=== PATIENT | female | born 1940 | race African-American/Black ===

== ENCOUNTER → 2016-11-16 | Outpatient (CLI) | payer MEDICARE, MEDICAID ==
[~2016-11-16] VITALS: Ht 170.2 cm; Wt 77.6 kg
[~2016-11-16] MED LIST: ALLO300 PO; ASPI-556 PO; BACL10TA PO; CEFX1I IV; CHOL200016 PO; CLON.1 PO; COLC0.6T69 PO; DOCU250C91 PO; FLUT1DIS5 IH; FURO40 PO; GABA-531 PO; HYDR-305 PO; HYDR50 PO; INSLAN SQ; IPRA4AER IH; ISOS1TAB2 PO; LEVO50TA4 PO; LORA10TA7 PO; LOSA50TA37 PO; NIFE10 PO; NITR.4 SL; PHEN-857 PO; POTA10CA44 PO; PRAS10TA6 PO; PRAV40 PO; PREG75 PO; PREMC VG; PROP40TA7 PO; RANO500T3 PO; SENN-161 PO; TRAZ-147 PO; VITAD5000 PO; ZOLP5 PO
[2016-11-16 11:30] VITALS: BP 142/58
== END | disposition home or self-care (01) ==
LOC: SRCNTR 09:27
PROVIDERS: ATTEND Internal Medicine Critical Care Medicine
DX: I10 Essential (primary) hypertension (principal); I25.10 Atherosclerotic heart disease of native coronary artery without angina pectoris; J42 Unspecified chronic bronchitis; I35.0 Nonrheumatic aortic (valve) stenosis; E11.9 Type 2 diabetes mellitus without complications; E66.9 Obesity, unspecified; E03.9 Hypothyroidism, unspecified; K21.9 Gastro-esophageal reflux disease without esophagitis; Z95.5 Presence of coronary angioplasty implant and graft; Z95.2 Presence of prosthetic heart valve
CPT/HCPCS: G0463

== ENCOUNTER → 2017-01-10 | Outpatient (CLI) | payer MEDICARE, MEDICAID ==
[~2017-01-10] MED LIST changes: -BACL10TA PO; -CEFX1I IV; -DOCU250C91 PO; -GABA-531 PO; -NIFE10 PO; -PREMC VG; -PROP40TA7 PO; -RANO500T3 PO; +REGADENOSON 0.4 MG/5 ML PF SYRINGE IVP ONE; +SESTAMIBI TC99M/UD ISOTOPE 1 EA INJ INJ ONE; -VITAD5000 PO
[2017-01-10 08:30] VITALS: BP 152/64
[2017-01-10 11:14] VITALS: BP 169/66
== END | disposition home or self-care (01) ==
LOC: CARDMN 07:50
PROVIDERS: ATTEND Internal Medicine Cardiovascular Disease
DX: I25.9 Chronic ischemic heart disease, unspecified (principal); R07.89 Other chest pain; R55 Syncope and collapse
CPT/HCPCS: 78452; 93017; A9500; J2785

== ENCOUNTER 2017-02-05 14:04 | Inpatient (IN) | payer MEDICARE, MEDICAID ==
[~2017-02-05] VITALS: Ht 170.2 cm; Wt 75.9 kg
[~2017-02-05 14:04] MED LIST changes: +HYDR-2924 PO; -HYDR50 PO; -REGADENOSON 0.4 MG/5 ML PF SYRINGE IVP ONE; -SESTAMIBI TC99M/UD ISOTOPE 1 EA INJ INJ ONE
[2017-02-05 14:32] LABS: GLUCOSE,POINT OF CARE 110 MG/DL (70-110)
[2017-02-05 14:37] LABS: BASOPHILS % (AUTO) 0.3 % (0.0-2.0); EOSINOPHILS % (AUTO) 3.8 % (1.0-6.0); HEMATOCRIT 32.3 % (36-46); HEMOGLOBIN 10.3 g/dL (12.0-16.0); LYMPHOCYTES # (AUTO) 1.7 K/uL (1.0-4.8); MEAN CORPUSCULAR HEMOGLOBIN 30.9 pg (26.0-34.0); MEAN CORPUSCULAR HGB CONC 31.8 G/dL (31.0-37.0); MEAN CORPUSCULAR VOLUME 97 fL (80-100); MONOCYTES # (AUTO) 0.6 K/uL (0.1-1.0); MONOCYTES % (AUTO) 9.9 % (2.0-9.0); NEUTROPHILS # (AUTO) 3.9 K/uL (1.8-7.7); PLATELET COUNT (AUTO) 170 K/uL (150-450); RED BLOOD CELL COUNT(AUTO) 3.32 MIL/uL (4.00-5.20); RED CELL DISTRIBUTION WIDTH 15.4 % (11.5-14.5); WHITE BLOOD COUNT (AUTO) 6.6 K/uL (4.5-11.0)
[2017-02-05 14:44] LABS: ANION GAP 9 mmol/L (8-16); CALCIUM, TOTAL 9.2 mg/dL (8.8-10.5); CARBON DIOXIDE 27 mmol/L (22-29); CHLORIDE 107 mmol/L (98-107); CREATININE 1.55 mg/dL (0.60-1.30); GLOMERULAR FILTR. RATE CALC 40 mL/min (>60); POTASSIUM 3.7 mmol/L (3.5-5.1); SODIUM SERUM 143 mmol/L (136-145); UREA NITROGEN, BLOOD 25 mg/dL (7-18)
[2017-02-05 14:45] LABS: PROTHROMBIN TIME 10.7 SEC (9.4-11.6)
[2017-02-05 15:09] LABS: ALANINE AMINOTRANSFERASE 18 U/L (12-78); ALBUMIN 3.7 g/dL (3.4-5.0); ASPARTATE AMINOTRANSFERASE 17 U/L (15-37); BILIRUBIN,TOTAL 0.4 mg/dL (0.1-1.0); CREATINE KINASE, TOTAL 115 U/L (26-192); TOTAL PROTEIN, SERUM 6.6 g/dL (6.4-8.2)
[2017-02-05 15:14] LABS: CREATINE KINASE MB < 0.5 ng/mL (0-5)
[2017-02-05] MEDS ORDERED: ASPIRIN 81 MG CHEWABLE TABLET PO ONE (15:15)
[2017-02-05 15:23] LABS: ADD UA MICROSCOPIC NO; APPEARANCE,URINE CLEAR (CLEAR); GLUCOSE, URINE (UA) NEGATIVE (NEGATIVE); KETONES,URINE NEGATIVE (NEGATIVE); LEUKOCYTE ESTERASE ,URINE NEGATIVE (NEGATIVE); OCCULT BLOOD,URINE NEGATIVE (NEGATIVE); PH,URINE 7.5 (5.0-8.0); PROTEIN,URINE NEGATIVE (NEGATIVE)
[2017-02-05 15:53] LABS: B-TYPE NATRIURETIC PEPTIDE 434 pg/mL (0-100)
[2017-02-05] MEDS ORDERED: MAGNESIUM HYDROXIDE SUSPENSION 30 ML UDCUP PO PRN (16:30)
[2017-02-05] MEDS ORDERED: BISACODYL 10 MG RECTAL RECTAL SUPPOSITORY PR PRN (16:30)
[2017-02-05] MEDS ORDERED: DEXTROSE 50%-WATER 25 GM/50 ML SYRINGE IVP PRN (16:30)
[2017-02-05] MEDS ORDERED: ONDANSETRON HCL 4 MG/2 ML VIAL IVP PRN ×2 (16:30→16:45)
[2017-02-05] MEDS ORDERED: ACETAMINOPHEN 500 MG TABLET PO PRN (16:30)
[2017-02-05] MEDS ORDERED: IPRATROPIUM BROMIDE 0.5 MG/2.5 ML NEB SOLUTION NEB PRN (16:30)
[2017-02-05] MEDS ORDERED: ALBUTEROL SULFATE 2.5 MG/0.5 ML NEB SOLUTION NEB PRN (16:30)
[2017-02-05] MEDS ORDERED: 0.9% SODIUM CHLORIDE 10 ML SYRINGE IVP PRN (16:45)
[2017-02-05] MEDS ORDERED: NITROGLYCERIN 2% (1 GM=INCH) PACKET TP ONE (16:45)
[2017-02-05] MEDS ORDERED: ACETAMINOPHEN 325 MG TABLET PO PRN (16:45)
[2017-02-05] MEDS ORDERED: LOSARTAN POTASSIUM 50 MG TABLET PO SCH (21:00)
[2017-02-05] MEDS ORDERED: FUROSEMIDE 40 MG TABLET PO SCH (21:00)
[2017-02-05 21:09] VITALS: BP 166/55
[2017-02-05] MEDS: PRAVASTATIN SODIUM 40 MG TABLET PO SCH (21:41)
[2017-02-05] MEDS: ZOLPIDEM TARTRATE 5 MG TABLET PO PRN (21:42)
[2017-02-05] MEDS: HEPARIN SODIUM,PORCINE 5,000 UNITS/ML VIAL SQ SCH (21:43)
[2017-02-05] MEDS: PREGABALIN 75 MG CAPSULE PO SCH (21:43)
[2017-02-05] MEDS: TraZODone HCL 100 MG TABLET PO SCH (21:43)
[2017-02-05] MEDS: INSULIN ASPART 100 UNITS/ML SQ PRN (21:54)
[2017-02-05] MEDS: HYDROCODONE/ACETAMINOPHEN 10-325 MG TABLET PO PRN (22:23)
[2017-02-05 23:56] VITALS: BP 131/46
[2017-02-06] VITALS (22 sets, daily range): BP systolic 145–264; BP diastolic 35–101
[2017-02-06] MEDS: NITROGLYCERIN 2% (1 GM=INCH) PACKET TP SCH ×4 (00:10→18:04)
[2017-02-06 00:31] LABS: GLUCOSE COMMENT 1 Received Meds; GLUCOSE,POINT OF CARE 181 MG/DL (70-110)
[2017-02-06] MEDS: LEVOTHYROXINE SODIUM 50 MCG TABLET PO SCH (05:42)
[2017-02-06 06:30] LABS: BASOPHILS % (AUTO) 0.8 % (0.0-2.0); EOSINOPHILS % (AUTO) 7.6 % (1.0-6.0); HEMATOCRIT 30.8 % (36-46); HEMOGLOBIN 9.8 g/dL (12.0-16.0); LYMPHOCYTES # (AUTO) 1.8 K/uL (1.0-4.8); LYMPHOCYTES % (AUTO) 34.7 % (22.0-44.0); MEAN CORPUSCULAR HEMOGLOBIN 31.2 pg (26.0-34.0); MEAN CORPUSCULAR HGB CONC 31.8 G/dL (31.0-37.0); MEAN CORPUSCULAR VOLUME 98 fL (80-100); MONOCYTES # (AUTO) 0.6 K/uL (0.1-1.0); MONOCYTES % (AUTO) 11.6 % (2.0-9.0); NEUTROPHILS # (AUTO) 2.3 K/uL (1.8-7.7); NEUTROPHILS % (AUTO) 45.3 % (40.0-70.0); PLATELET COUNT (AUTO) 152 K/uL (150-450); RED BLOOD CELL COUNT(AUTO) 3.14 MIL/uL (4.00-5.20); RED CELL DISTRIBUTION WIDTH 15.2 % (11.5-14.5); WHITE BLOOD COUNT (AUTO) 5.1 K/uL (4.5-11.0)
[2017-02-06 07:22] LABS: ANION GAP 8 mmol/L (8-16); CALCIUM, TOTAL 8.8 mg/dL (8.8-10.5); CARBON DIOXIDE 30 mmol/L (22-29); CHLORIDE 106 mmol/L (98-107); CHOL/HDL RATIO 1.8 (3.9-5.7); CREATINE KINASE MB 0.8 ng/mL (0-5); CREATINE KINASE, TOTAL 108 U/L (26-192); CREATININE 1.21 mg/dL (0.60-1.30); GLOMERULAR FILTR. RATE CALC 53 mL/min (>60); POTASSIUM 3.7 mmol/L (3.5-5.1); SODIUM SERUM 144 mmol/L (136-145); UREA NITROGEN, BLOOD 23 mg/dL (7-18); URIC ACID 2.8 mg/dL (2.6-7.2)
[2017-02-06 07:55] LABS: THYROID STIMULATING HORMONE 1.77 uIU/mL (0.36-3.74)
[2017-02-06] MEDS ORDERED: SODIUM BICARBONATE 75 MEQ in DEXTROSE 5%-WATER 1,000 ML IV SCH (08:47)
[2017-02-06] MEDS: SENNA 187 MG TABLET PO SCH (08:54)
[2017-02-06] MEDS: PANTOPRAZOLE SODIUM 40 MG DR TABLET PO SCH (08:54)
[2017-02-06] MEDS: CHOLECALCIFEROL (VIT D3) 1,000 UNITS TABLET PO SCH (08:54)
[2017-02-06] MEDS: HYDROCODONE/ACETAMINOPHEN 10-325 MG TABLET PO PRN ×2 (08:55→20:22)
[2017-02-06] MEDS: HEPARIN SODIUM,PORCINE 5,000 UNITS/ML VIAL SQ SCH ×2 (08:56→20:56)
[2017-02-06] MEDS: PREGABALIN 75 MG CAPSULE PO SCH ×2 (08:56→21:00)
[2017-02-06] MEDS: ACETYLCYSTEINE 20% 200 MG/ML 4 ML ORAL SOLUTION PO SCH ×2 (09:30→20:57)
[2017-02-06] MEDS ORDERED: MORPHINE SULFATE 2 MG/ML SYRINGE IVP PRN ×3 (11:00→17:00)
[2017-02-06] MEDS ORDERED: HEPARIN SODIUM 1000 UNITS/NS 1,000 ML ONE (12:41)
[2017-02-06] MEDS ORDERED: IOHEXOL 300 MG/ML 150 ML VIAL ONE (12:41)
[2017-02-06] MEDS ORDERED: LIDOCAINE HCL/PF 1% 30 ML VIAL ONE (12:41)
[2017-02-06] MEDS ORDERED: SODIUM BICARBONATE 50 MEQ/50 ML VIAL ONE (12:41)
[2017-02-06] MEDS ORDERED: SODIUM CHLORIDE 0.9% 500 ML IV ONE (13:10)
[2017-02-06] MEDS ORDERED: LIDOCAINE 1% 30 ML/SOD BICARB 8.4% 4 ML SQ ONE (13:11)
[2017-02-06] MEDS ORDERED: HEPARIN SODIUM 2,000 UNITS in HEPARIN SODIUM 1000 UNITS/NS 1,000 ML IARTER ONE (13:12)
[2017-02-06] MEDS ORDERED: FentaNYL CITRATE-PF 100 MCG/2 ML VIAL ONE (13:13)
[2017-02-06] MEDS ORDERED: MIDAZOLAM HCL 2 MG/2 ML VIAL ONE (13:14)
[2017-02-06] MEDS ORDERED: IOHEXOL 300 MG/ML 150 ML VIAL IARTER ONE (13:14)
[2017-02-06] MEDS ORDERED: DILTIAZEM HCL 5 MG/ML 5 ML VIAL IVP ONE (13:31)
[2017-02-06] MEDS ORDERED: HydrALAZINE HCL 20 MG/ML VIAL IVP SCH (15:00)
[2017-02-06] MEDS: MORPHINE SULFATE 2 MG/ML SYRINGE IVP PRN (15:26)
[2017-02-06] MEDS: HydrALAZINE HCL 10 MG TABLET PO SCH ×2 (16:23→18:03)
[2017-02-06] MEDS ORDERED: ACETAMINOPHEN 500 MG TABLET PO PRN (16:30)
[2017-02-06] MEDS ORDERED: HydrALAZINE HCL 10 MG TABLET PO SCH (18:00)
[2017-02-06 19:22] LABS: GLUCOSE,POINT OF CARE 83 MG/DL (70-110)
[2017-02-06] MEDS: BUDESONIDE 0.5 MG/2 ML NEB SOLUTION NEB SCH (19:51)
[2017-02-06] MEDS: PRAVASTATIN SODIUM 40 MG TABLET PO SCH (20:56)
[2017-02-06] MEDS: CloNIDine HCL 0.1 MG TABLET PO PRN (20:56)
[2017-02-06] MEDS: TraZODone HCL 100 MG TABLET PO SCH (21:00)
[2017-02-06] MEDS: INSULIN ASPART 100 UNITS/ML SQ PRN (21:07)
[2017-02-07] VITALS (8 sets, daily range): BP systolic 133–185; BP diastolic 44–57
[2017-02-07 06:03] LABS: BASOPHILS # (AUTO) 0.03 K/uL (0.00-0.20); BASOPHILS % (AUTO) 0.5 % (0.0-2.0); EOSINOPHILS # (AUTO) 0.48 K/uL (0.00-0.70); EOSINOPHILS % (AUTO) 8.21 % (1.0-6.0); HEMATOCRIT 33.8 % (36-46); HEMOGLOBIN 10.8 g/dL (12.0-16.0); LYMPHOCYTES # (AUTO) 1.6 K/uL (1.0-4.8); LYMPHOCYTES % (AUTO) 27.7 % (22.0-44.0); MEAN CORPUSCULAR HEMOGLOBIN 31.6 pg (26.0-34.0); MEAN CORPUSCULAR HGB CONC 31.8 G/dL (31.0-37.0); MEAN CORPUSCULAR VOLUME 99 fL (80-100); MONOCYTES # (AUTO) 0.4 K/uL (0.1-1.0); MONOCYTES % (AUTO) 6.7 % (2.0-9.0); NEUTROPHILS # (AUTO) 3.3 K/uL (1.8-7.7); NEUTROPHILS % (AUTO) 56.8 % (40.0-70.0); PLATELET COUNT (AUTO) 170 K/uL (150-450); RED BLOOD CELL COUNT(AUTO) 3.41 MIL/uL (4.00-5.20); RED CELL DISTRIBUTION WIDTH 15.5 % (11.5-14.5); WHITE BLOOD COUNT (AUTO) 5.8 K/uL (4.5-11.0)
[2017-02-07] MEDS: HydrALAZINE HCL 10 MG TABLET PO SCH ×3 (06:11→12:09)
[2017-02-07] MEDS: NITROGLYCERIN 2% (1 GM=INCH) PACKET TP SCH ×4 (06:11→18:28)
[2017-02-07] MEDS: LEVOTHYROXINE SODIUM 50 MCG TABLET PO SCH (06:14)
[2017-02-07] MEDS: INSULIN ASPART 100 UNITS/ML SQ PRN ×2 (06:19→21:50)
[2017-02-07 07:06] LABS: CALCIUM, TOTAL 8.8 mg/dL (8.8-10.5); CREATININE 1.24 mg/dL (0.60-1.30); PHOSPHORUS 4.5 mg/dL (2.5-4.9); POTASSIUM 3.7 mmol/L (3.5-5.1)
[2017-02-07] MEDS: HEPARIN SODIUM,PORCINE 5,000 UNITS/ML VIAL SQ SCH ×2 (08:28→20:21)
[2017-02-07] MEDS: CHOLECALCIFEROL (VIT D3) 1,000 UNITS TABLET PO SCH (08:28)
[2017-02-07] MEDS: PANTOPRAZOLE SODIUM 40 MG DR TABLET PO SCH (08:28)
[2017-02-07] MEDS: SENNA 187 MG TABLET PO SCH (08:28)
[2017-02-07] MEDS: PREGABALIN 75 MG CAPSULE PO SCH ×3 (08:29→20:27)
[2017-02-07] MEDS: BUDESONIDE 0.5 MG/2 ML NEB SOLUTION NEB SCH ×2 (09:28→20:48)
[2017-02-07] MEDS ORDERED: BACLOFEN 10 MG TABLET PO PRN (12:00)
[2017-02-07] MEDS: CARVEDILOL 3.125 MG TABLET PO SCH ×2 (12:13→21:49)
[2017-02-07] MEDS: MORPHINE SULFATE 2 MG/ML SYRINGE IVP PRN (13:52)
[2017-02-07] MEDS: LOSARTAN POTASSIUM 50 MG TABLET PO SCH (13:53)
[2017-02-07] MEDS: CloNIDine HCL 0.1 MG TABLET PO PRN (15:48)
[2017-02-07] MEDS: HydrALAZINE HCL 50 MG TABLET PO SCH ×2 (18:28→23:22)
[2017-02-07] MEDS: AmLODIPine BESYLATE 5 MG TABLET PO SCH (20:20)
[2017-02-07] MEDS: PRAVASTATIN SODIUM 40 MG TABLET PO SCH (20:21)
[2017-02-07] MEDS: TraZODone HCL 100 MG TABLET PO SCH (20:21)
[2017-02-07] MEDS ORDERED: 0.9% SODIUM CHLORIDE 5 ML NEB SOLUTION NEB ONE (20:49)
[2017-02-07] MEDS: ZOLPIDEM TARTRATE 5 MG TABLET PO PRN (23:22)
[2017-02-08 05:15] VITALS: BP 150/57
[2017-02-08] MEDS: NITROGLYCERIN 2% (1 GM=INCH) PACKET TP SCH ×3 (05:19→12:00)
[2017-02-08] MEDS: HydrALAZINE HCL 50 MG TABLET PO SCH ×2 (05:20→12:11)
[2017-02-08 06:04] LABS: BASOPHILS # (AUTO) 0.04 K/uL (0.00-0.20); BASOPHILS % (AUTO) 0.7 % (0.0-2.0); EOSINOPHILS # (AUTO) 0.55 K/uL (0.00-0.70); EOSINOPHILS % (AUTO) 8.66 % (1.0-6.0); HEMATOCRIT 33.5 % (36-46); LYMPHOCYTES # (AUTO) 1.7 K/uL (1.0-4.8); LYMPHOCYTES % (AUTO) 27.4 % (22.0-44.0); MEAN CORPUSCULAR HEMOGLOBIN 32.3 pg (26.0-34.0); MEAN CORPUSCULAR HGB CONC 32.7 G/dL (31.0-37.0); MEAN CORPUSCULAR VOLUME 99 fL (80-100); MONOCYTES # (AUTO) 0.6 K/uL (0.1-1.0); MONOCYTES % (AUTO) 8.7 % (2.0-9.0); NEUTROPHILS # (AUTO) 3.5 K/uL (1.8-7.7); NEUTROPHILS % (AUTO) 54.6 % (40.0-70.0); PLATELET COUNT (AUTO) 178 K/uL (150-450); RED BLOOD CELL COUNT(AUTO) 3.39 MIL/uL (4.00-5.20); RED CELL DISTRIBUTION WIDTH 15.8 % (11.5-14.5); WHITE BLOOD COUNT (AUTO) 6.4 K/uL (4.5-11.0)
[2017-02-08 06:29] LABS: ALANINE AMINOTRANSFERASE 18 U/L (12-78); ALBUMIN 3.4 g/dL (3.4-5.0); ANION GAP 8 mmol/L (8-16); ASPARTATE AMINOTRANSFERASE 17 U/L (15-37); BILIRUBIN,TOTAL 0.4 mg/dL (0.1-1.0); CALCIUM, TOTAL 9.1 mg/dL (8.8-10.5); CARBON DIOXIDE 28 mmol/L (22-29); CHLORIDE 107 mmol/L (98-107); CREATININE 1.06 mg/dL (0.60-1.30); GLOMERULAR FILTR. RATE CALC > 60 mL/min (>60); POTASSIUM 3.6 mmol/L (3.5-5.1); SODIUM SERUM 143 mmol/L (136-145); TOTAL PROTEIN, SERUM 6.3 g/dL (6.4-8.2); UREA NITROGEN, BLOOD 19 mg/dL (7-18)
[2017-02-08] MEDS: LEVOTHYROXINE SODIUM 50 MCG TABLET PO SCH (07:09)
[2017-02-08 07:28] VITALS: BP 138/65
[2017-02-08] MEDS: HYDROCODONE/ACETAMINOPHEN 10-325 MG TABLET PO PRN (08:36)
[2017-02-08 08:58] LABS: GLUCOSE COMMENT 1 Received Meds; GLUCOSE,POINT OF CARE 100 MG/DL (70-110)
[2017-02-08] MEDS: PREGABALIN 75 MG CAPSULE PO SCH ×2 (09:00→10:04)
[2017-02-08] MEDS: BUDESONIDE 0.5 MG/2 ML NEB SOLUTION NEB SCH (09:02)
[2017-02-08] MEDS: HEPARIN SODIUM,PORCINE 5,000 UNITS/ML VIAL SQ SCH (10:02)
[2017-02-08] MEDS: SENNA 187 MG TABLET PO SCH (10:02)
[2017-02-08] MEDS: LOSARTAN POTASSIUM 50 MG TABLET PO SCH (10:05)
[2017-02-08] MEDS: AmLODIPine BESYLATE 5 MG TABLET PO SCH (10:05)
[2017-02-08] MEDS: CARVEDILOL 3.125 MG TABLET PO SCH (10:06)
[2017-02-08] MEDS: PANTOPRAZOLE SODIUM 40 MG DR TABLET PO SCH (10:07)
[2017-02-08] MEDS: CHOLECALCIFEROL (VIT D3) 1,000 UNITS TABLET PO SCH (10:07)
[2017-02-08 12:24] VITALS: BP 132/66
[2017-02-08] MEDS ORDERED: BACL10TA PO ×2 (12:44→13:39)
[2017-02-09 06:58] LABS: GLUCOSE,POINT OF CARE 131 MG/DL (70-110)
== END 2017-02-08 14:40 | disposition home or self-care (01) | DRG 286 ==
LOC: EEVIPCON 14:07 → EMS 14:07 → 5N 20:31
PROVIDERS: ADMIT Internal Medicine Geriatric Medicine; ATTEND Internal Medicine Geriatric Medicine
PROC: 4A023N7 Measurement of Cardiac Sampling and Pressure, Left Heart, Percutaneous Approach (ICD-10-PCS; principal; 2017-02-06)
PROC: B2111ZZ Fluoroscopy of Multiple Coronary Arteries using Low Osmolar Contrast (ICD-10-PCS; 2017-02-06)
PROC: B3101ZZ Fluoroscopy of Thoracic Aorta using Low Osmolar Contrast (ICD-10-PCS; 2017-02-06)
DX: I25.110 Atherosclerotic heart disease of native coronary artery with unstable angina pectoris (principal); I50.31 Acute diastolic (congestive) heart failure; I13.2 Hypertensive heart and chronic kidney disease with heart failure and with stage 5 chronic kidney disease, or end stage renal disease; E11.22 Type 2 diabetes mellitus with diabetic chronic kidney disease; N18.3 Chronic kidney disease, stage 3 (moderate); E03.9 Hypothyroidism, unspecified; E78.5 Hyperlipidemia, unspecified; D64.9 Anemia, unspecified; I35.1 Nonrheumatic aortic (valve) insufficiency; E55.9 Vitamin D deficiency, unspecified; E78.00 Pure hypercholesterolemia, unspecified; I25.2 Old myocardial infarction; J44.9 Chronic obstructive pulmonary disease, unspecified; Z85.41 Personal history of malignant neoplasm of cervix uteri; Z87.891 Personal history of nicotine dependence; Z95.5 Presence of coronary angioplasty implant and graft; Z98.42 Cataract extraction status, left eye; Z98.41 Cataract extraction status, right eye; Z88.0 Allergy status to penicillin; Z79.899 Other long term (current) drug therapy; Z79.82 Long term (current) use of aspirin; Z79.4 Long term (current) use of insulin; Z90.710 Acquired absence of both cervix and uterus; Z95.2 Presence of prosthetic heart valve
CPT/HCPCS: 82306; 82607; 82746; 82962; 83036; 83735; 84100; 84439; 84443; 84550; 93005; 93306; 94640; 99291; J1644; J2250; J2270; J3010; J3490; J7060; Q9967

== ENCOUNTER → 2017-05-25 | Outpatient (CLI) | payer MEDICARE, MEDICAID ==
[~2017-05-25] MED LIST changes: +BACL10TA PO
== END | disposition home or self-care (01) ==
LOC: RADPV 11:28
PROVIDERS: ATTEND Legal Medicine
DX: I70.0 Atherosclerosis of aorta (principal); I51.7 Cardiomegaly; J98.11 Atelectasis; M47.894 Other spondylosis, thoracic region; I50.9 Heart failure, unspecified; Z95.5 Presence of coronary angioplasty implant and graft
CPT/HCPCS: 71020

== ENCOUNTER 2017-09-05 13:58 | Inpatient (IN) | payer MEDICARE, MEDICAID ==
[~2017-09-05] VITALS: Ht 172.7 cm; Wt 71.4 kg
[~2017-09-05 13:58] MED LIST changes: +CLON-570 PO; -CLON.1 PO; +COLC0.6T67 PO; -COLC0.6T69 PO; -PHEN-857 PO; +PHEN-934 PO; -PRAV40 PO; +PRAV40TA4 PO
[2017-09-05] MEDS ORDERED: BUME1TAB17 PO (14:21)
[2017-09-05 15:26] LABS: EOSINOPHILS # (AUTO) 0.05 K/uL (0.00-0.70); EOSINOPHILS % (AUTO) 0.74 % (1.0-6.0); HEMATOCRIT 39.9 % (36-46); HEMOGLOBIN 13.3 g/dL (12.0-16.0); LYMPHOCYTES # (AUTO) 0.7 K/uL (1.0-4.8); LYMPHOCYTES % (AUTO) 10.3 % (22.0-44.0); MEAN CORPUSCULAR HGB CONC 33.2 G/dL (31.0-37.0); MEAN CORPUSCULAR VOLUME 93 fL (80-100); MONOCYTES # (AUTO) 0.1 K/uL (0.1-1.0); MONOCYTES % (AUTO) 1.7 % (2.0-9.0); NEUTROPHILS # (AUTO) 5.9 K/uL (1.8-7.7); PLATELET COUNT (AUTO) 171 K/uL (150-450); RED BLOOD CELL COUNT(AUTO) 4.27 MIL/uL (4.00-5.20); RED CELL DISTRIBUTION WIDTH 16.3 % (11.5-14.5); WHITE BLOOD COUNT (AUTO) 6.7 K/uL (4.5-11.0)
[2017-09-05 15:30] LABS: NEUTROPHILS % (AUTO) 87.2 % (40.0-70.0)
[2017-09-05 15:46] LABS: INR 1.1 (0.9-1.1)
[2017-09-05 15:47] LABS: ANION GAP 10 mmol/L (8-16); CALCIUM, TOTAL 10.1 mg/dL (8.8-10.5); CARBON DIOXIDE 29 mmol/L (22-29); CHLORIDE 102 mmol/L (98-107); CREATININE 1.08 mg/dL (0.60-1.30); GLOMERULAR FILTR. RATE CALC 60 mL/min (>60); POTASSIUM 3.5 mmol/L (3.5-5.1); SODIUM SERUM 141 mmol/L (136-145); UREA NITROGEN, BLOOD 19 mg/dL (7-18)
[2017-09-05 15:51] LABS: B-TYPE NATRIURETIC PEPTIDE 1850 pg/mL (0-100)
[2017-09-05 16:11] LABS: ALANINE AMINOTRANSFERASE 34 U/L (12-78); ALBUMIN 4.4 g/dL (3.4-5.0); ASPARTATE AMINOTRANSFERASE 35 U/L (15-37); BILIRUBIN,TOTAL 0.8 mg/dL (0.1-1.0); CREATINE KINASE MB 3.3 ng/mL (0-5); CREATINE KINASE, TOTAL 188 U/L (26-192)
[2017-09-05] MEDS ORDERED: ASPIRIN 325 MG TABLET PO ONE (16:15)
[2017-09-05] MEDS ORDERED: NITROGLYCERIN 2% (1 GM=INCH) PACKET TP ONE (16:15)
[2017-09-05] MEDS ORDERED: BUMETANIDE 0.25 MG/ML 10 ML VIAL IVP ONE (16:15)
[2017-09-05] MEDS ORDERED: 0.9% SODIUM CHLORIDE 10 ML SYRINGE IVP PRN (16:30)
[2017-09-05] MEDS ORDERED: MAGNESIUM HYDROXIDE SUSPENSION 30 ML UDCUP PO ONE (16:30)
[2017-09-05] MEDS ORDERED: ACETAMINOPHEN 325 MG TABLET PO PRN (16:30)
[2017-09-05 16:31] LABS: RBC MORPHOLOGY COMMENT ABNORMAL RBC MORPH
[2017-09-05] MEDS ORDERED: ACETAMINOPHEN 500 MG TABLET PO PRN (16:45)
[2017-09-05] MEDS ORDERED: MAGNESIUM HYDROXIDE SUSPENSION 30 ML UDCUP PO PRN (16:45)
[2017-09-05] MEDS ORDERED: IPRATROPIUM BROMIDE 0.5 MG/2.5 ML NEB SOLUTION NEB PRN (16:45)
[2017-09-05] MEDS: NITROGLYCERIN 2% (1 GM=INCH) PACKET TP SCH ×2 (16:45→22:02)
[2017-09-05] MEDS ORDERED: ONDANSETRON HCL 4 MG/2 ML VIAL IVP PRN (16:45)
[2017-09-05] MEDS ORDERED: BACLOFEN 10 MG TABLET PO PRN (16:45)
[2017-09-05] MEDS ORDERED: BISACODYL 10 MG RECTAL RECTAL SUPPOSITORY PR PRN (16:45)
[2017-09-05] MEDS ORDERED: ALBUTEROL SULFATE 2.5 MG/0.5 ML NEB SOLUTION NEB PRN (16:45)
[2017-09-05 17:10] LABS: APPEARANCE,URINE TURBID (CLEAR); GLUCOSE, URINE (UA) NEGATIVE (NEGATIVE); KETONES,URINE 15 mg/dL (NEGATIVE); LEUKOCYTE ESTERASE ,URINE LARGE (NEGATIVE); OCCULT BLOOD,URINE SMALL (NEGATIVE); PROTEIN,URINE SEE CONFIRM (NEGATIVE)
[2017-09-05 17:13] LABS: ADD UA MICROSCOPIC YES
[2017-09-05 17:23] LABS: SULFOSALICYLIC ACID,URINE 4+ (Negative)
[2017-09-05 17:24] LABS: SQUAMOUS EPITHELIAL CELL,UR Moderate /LPF (None Seen); WBC,URINE 51-100 /HPF (0-5)
[2017-09-05] MEDS ORDERED: MORPHINE SULFATE 4 MG/ML SYRINGE IVP ONE (18:15)
[2017-09-05] MEDS ORDERED: ONDANSETRON HCL 4 MG/2 ML VIAL IVP ONE (18:15)
[2017-09-05 18:27] LABS: GLUCOSE,POINT OF CARE 98 MG/DL (70-110)
[2017-09-05 20:33] VITALS: BP 184/64
[2017-09-05] MEDS ORDERED: FUROSEMIDE 20 MG/2 ML VIAL IVP SCH (21:00)
[2017-09-05] MEDS ORDERED: DEXTROSE 50%-WATER 25 GM/50 ML SYRINGE IVP PRN (21:30)
[2017-09-05] MEDS: FUROSEMIDE 40 MG/4 ML VIAL IVP SCH (21:52)
[2017-09-05] MEDS: PREGABALIN 75 MG CAPSULE PO SCH (21:52)
[2017-09-05] MEDS: PRAVASTATIN SODIUM 40 MG TABLET PO SCH (21:52)
[2017-09-05] MEDS: LOSARTAN POTASSIUM 50 MG TABLET PO SCH (21:52)
[2017-09-05] MEDS: MORPHINE SULFATE 2 MG/ML SYRINGE IVP PRN (22:57)
[2017-09-06] VITALS (7 sets, daily range): BP systolic 150–185; BP diastolic 53–86
[2017-09-06] MEDS: HydrALAZINE HCL 20 MG/ML VIAL IVP PRN ×2 (00:11→06:04)
[2017-09-06] MEDS: NITROGLYCERIN 2% (1 GM=INCH) PACKET TP SCH ×4 (05:30→21:46)
[2017-09-06] MEDS: LEVOTHYROXINE SODIUM 50 MCG TABLET PO SCH (05:32)
[2017-09-06] MEDS: INSULIN ASPART 100 UNITS/ML SQ PRN ×3 (06:00→20:13)
[2017-09-06] MEDS: MORPHINE SULFATE 2 MG/ML SYRINGE IVP PRN ×2 (07:47→20:06)
[2017-09-06 08:37] LABS: EOSINOPHILS # (AUTO) 0.05 K/uL (0.00-0.70); EOSINOPHILS % (AUTO) 0.49 % (1.0-6.0); HEMATOCRIT 35.9 % (36-46); HEMOGLOBIN 12.1 g/dL (12.0-16.0); LYMPHOCYTES # (AUTO) 1.2 K/uL (1.0-4.8); LYMPHOCYTES % (AUTO) 12.6 % (22.0-44.0); MEAN CORPUSCULAR HEMOGLOBIN 31.6 pg (26.0-34.0); MEAN CORPUSCULAR HGB CONC 33.8 G/dL (31.0-37.0); MEAN CORPUSCULAR VOLUME 93 fL (80-100); MONOCYTES # (AUTO) 0.5 K/uL (0.1-1.0); MONOCYTES % (AUTO) 5.6 % (2.0-9.0); NEUTROPHILS # (AUTO) 7.8 K/uL (1.8-7.7); NEUTROPHILS % (AUTO) 81.3 % (40.0-70.0); PLATELET COUNT (AUTO) 206 K/uL (150-450); RED BLOOD CELL COUNT(AUTO) 3.85 MIL/uL (4.00-5.20); RED CELL DISTRIBUTION WIDTH 16.4 % (11.5-14.5); WHITE BLOOD COUNT (AUTO) 9.6 K/uL (4.5-11.0)
[2017-09-06 09:00] LABS: ALBUMIN 3.9 g/dL (3.4-5.0); BILIRUBIN,TOTAL 0.6 mg/dL (0.1-1.0); CALCIUM, TOTAL 9.5 mg/dL (8.8-10.5); CHOL/HDL RATIO 1.9 (3.9-5.7); CREATININE 1.17 mg/dL (0.60-1.30); MAGNESIUM 2.4 mg/dL (1.80-2.40); POTASSIUM 3.6 mmol/L (3.5-5.1); THYROID STIMULATING HORMONE 2.22 uIU/mL (0.36-3.74); TOTAL PROTEIN, SERUM 6.4 g/dL (6.4-8.2)
[2017-09-06 09:16] LABS: HEMOGLOBIN A1C 6.5 % (4.5-6.2)
[2017-09-06] MEDS: PANTOPRAZOLE SODIUM 40 MG/VIAL IVP SCH (09:22)
[2017-09-06] MEDS: FUROSEMIDE 40 MG/4 ML VIAL IVP SCH ×2 (09:22→20:05)
[2017-09-06] MEDS: ENOXAPARIN SODIUM 40 MG/0.4 ML PF SYRINGE SQ SCH (09:23)
[2017-09-06] MEDS: PRASUGREL HCL 10 MG TABLET PO SCH (09:23)
[2017-09-06] MEDS: ASPIRIN 81 MG EC TABLET PO SCH (09:23)
[2017-09-06] MEDS: PREGABALIN 75 MG CAPSULE PO SCH ×2 (09:24→20:05)
[2017-09-06] MEDS: SENNA 187 MG TABLET PO SCH (09:24)
[2017-09-06] MEDS: CHOLECALCIFEROL (VIT D3) 2,000 UNITS TABLET PO SCH (09:24)
[2017-09-06] MEDS: FLUTICASONE/VILANTEROL 200-25 MCG/INH INHALER [14] IH SCH (13:27)
[2017-09-06] MEDS: PRAVASTATIN SODIUM 40 MG TABLET PO SCH (20:05)
[2017-09-06] MEDS: LOSARTAN POTASSIUM 50 MG TABLET PO SCH (20:05)
[2017-09-06] MEDS: POLYMYXIN B/TRIMETHOPRIM 10 ML OPHTHALMIC SOLUTION OU SCH (21:42)
[2017-09-06 23:26] LABS: GLUCOSE COMMENT 1 Received Meds; GLUCOSE,POINT OF CARE 141 MG/DL (70-110)
[2017-09-06 23:26] LABS: GLUCOSE,POINT OF CARE 118 MG/DL (70-110)
[2017-09-06 23:32] LABS: GLUCOSE COMMENT 1 Received Meds; GLUCOSE,POINT OF CARE 141 MG/DL (70-110)
[2017-09-06] MEDS: ZOLPIDEM TARTRATE 5 MG TABLET PO PRN (23:52)
[2017-09-07] VITALS (7 sets, daily range): BP systolic 158–182; BP diastolic 55–76
[2017-09-07 05:37] LABS: GLUCOSE,POINT OF CARE 111 MG/DL (70-110)
[2017-09-07 05:37] LABS: GLUCOSE COMMENT 1 Received Meds; GLUCOSE,POINT OF CARE 152 MG/DL (70-110)
[2017-09-07] MEDS: NITROGLYCERIN 2% (1 GM=INCH) PACKET TP SCH ×4 (05:38→22:58)
[2017-09-07] MEDS: LEVOTHYROXINE SODIUM 50 MCG TABLET PO SCH (06:30)
[2017-09-07 06:41] LABS: EOSINOPHILS % (AUTO) 1.2 % (1.0-6.0); HEMATOCRIT 34.7 % (36-46); HEMOGLOBIN 11.7 g/dL (12.0-16.0); LYMPHOCYTES # (AUTO) 1.1 K/uL (1.0-4.8); LYMPHOCYTES % (AUTO) 12.9 % (22.0-44.0); MEAN CORPUSCULAR HGB CONC 33.6 G/dL (31.0-37.0); MEAN CORPUSCULAR VOLUME 95 fL (80-100); MONOCYTES # (AUTO) 0.7 K/uL (0.1-1.0); MONOCYTES % (AUTO) 8.9 % (2.0-9.0); NEUTROPHILS # (AUTO) 6.4 K/uL (1.8-7.7); PLATELET COUNT (AUTO) 213 K/uL (150-450); RED BLOOD CELL COUNT(AUTO) 3.65 MIL/uL (4.00-5.20); RED CELL DISTRIBUTION WIDTH 16.4 % (11.5-14.5); WHITE BLOOD COUNT (AUTO) 8.3 K/uL (4.5-11.0)
[2017-09-07 07:21] LABS: ANION GAP 6 mmol/L (8-16); CARBON DIOXIDE 30 mmol/L (22-29); CHLORIDE 102 mmol/L (98-107); CREATINE KINASE MB 2.4 ng/mL (0-5); CREATINE KINASE, TOTAL 91 U/L (26-192); CREATININE 1.18 mg/dL (0.60-1.30); GLOMERULAR FILTR. RATE CALC 54 mL/min (>60); POTASSIUM 3.4 mmol/L (3.5-5.1); SODIUM SERUM 138 mmol/L (136-145); UREA NITROGEN, BLOOD 24 mg/dL (7-18); URIC ACID 3.8 mg/dL (2.6-7.2)
[2017-09-07] MEDS: PANTOPRAZOLE SODIUM 40 MG/VIAL IVP SCH (08:24)
[2017-09-07] MEDS: AmLODIPine BESYLATE 5 MG TABLET PO SCH (08:26)
[2017-09-07] MEDS: FUROSEMIDE 40 MG/4 ML VIAL IVP SCH ×2 (08:26→20:31)
[2017-09-07] MEDS: MORPHINE SULFATE 2 MG/ML SYRINGE IVP PRN ×3 (08:27→20:37)
[2017-09-07] MEDS: FLUTICASONE/VILANTEROL 200-25 MCG/INH INHALER [14] IH SCH (08:28)
[2017-09-07] MEDS: PREGABALIN 75 MG CAPSULE PO SCH ×2 (08:28→20:33)
[2017-09-07] MEDS: POLYMYXIN B/TRIMETHOPRIM 10 ML OPHTHALMIC SOLUTION OU SCH ×4 (08:28→20:32)
[2017-09-07] MEDS: CHOLECALCIFEROL (VIT D3) 2,000 UNITS TABLET PO SCH (08:29)
[2017-09-07] MEDS: SENNA 187 MG TABLET PO SCH (08:29)
[2017-09-07] MEDS: ENOXAPARIN SODIUM 40 MG/0.4 ML PF SYRINGE SQ SCH (09:00)
[2017-09-07] MEDS: PRASUGREL HCL 10 MG TABLET PO SCH (09:00)
[2017-09-07] MEDS: ASPIRIN 81 MG EC TABLET PO SCH (09:00)
[2017-09-07 13:33] LABS: APPEARANCE,UNSPUN,BODY FLUID HAZY (CLEAR); COLOR,BODY FLUID YELLOW (LT YELLOW)
[2017-09-07] MEDS ORDERED: POTASSIUM CHLORIDE 20 MEQ ER TABLET PO PRN (14:00)
[2017-09-07] MEDS: CloNIDine HCL 0.1 MG TABLET PO SCH ×2 (14:43→20:32)
[2017-09-07] MEDS: INSULIN ASPART 100 UNITS/ML SQ PRN (18:04)
[2017-09-07 18:37] LABS: GLUCOSE,POINT OF CARE 127 MG/DL (70-110)
[2017-09-07 19:52] LABS: GLUCOSE,POINT OF CARE 133 MG/DL (70-110)
[2017-09-07 19:52] LABS: GLUCOSE COMMENT 1 Received Meds; GLUCOSE,POINT OF CARE 176 MG/DL (70-110)
[2017-09-07] MEDS: LOSARTAN POTASSIUM 50 MG TABLET PO SCH (20:32)
[2017-09-07] MEDS: PRAVASTATIN SODIUM 40 MG TABLET PO SCH (20:33)
[2017-09-07] MEDS: ZOLPIDEM TARTRATE 5 MG TABLET PO PRN (22:58)
[2017-09-08] VITALS (7 sets, daily range): BP systolic 143–177; BP diastolic 52–70
[2017-09-08] MEDS: LEVOTHYROXINE SODIUM 50 MCG TABLET PO SCH (05:16)
[2017-09-08] MEDS: NITROGLYCERIN 2% (1 GM=INCH) PACKET TP SCH ×4 (05:16→23:44)
[2017-09-08 05:42] LABS: GLUCOSE,POINT OF CARE 93 MG/DL (70-110)
[2017-09-08] MEDS: FUROSEMIDE 40 MG/4 ML VIAL IVP SCH ×2 (08:25→20:35)
[2017-09-08] MEDS: PANTOPRAZOLE SODIUM 40 MG/VIAL IVP SCH (08:25)
[2017-09-08] MEDS: ASPIRIN 81 MG EC TABLET PO SCH (08:26)
[2017-09-08] MEDS: ENOXAPARIN SODIUM 40 MG/0.4 ML PF SYRINGE SQ SCH (08:26)
[2017-09-08] MEDS: AmLODIPine BESYLATE 5 MG TABLET PO SCH (08:26)
[2017-09-08] MEDS: FLUTICASONE/VILANTEROL 200-25 MCG/INH INHALER [14] IH SCH (08:27)
[2017-09-08] MEDS: POLYMYXIN B/TRIMETHOPRIM 10 ML OPHTHALMIC SOLUTION OU SCH ×4 (08:27→20:36)
[2017-09-08] MEDS: CloNIDine HCL 0.1 MG TABLET PO SCH ×2 (08:27→22:27)
[2017-09-08] MEDS: SENNA 187 MG TABLET PO SCH (08:27)
[2017-09-08] MEDS: MORPHINE SULFATE 2 MG/ML SYRINGE IVP PRN ×3 (08:27→20:21)
[2017-09-08] MEDS: PREGABALIN 75 MG CAPSULE PO SCH ×2 (08:28→20:36)
[2017-09-08] MEDS: PRASUGREL HCL 10 MG TABLET PO SCH (08:29)
[2017-09-08] MEDS: CHOLECALCIFEROL (VIT D3) 2,000 UNITS TABLET PO SCH (08:29)
[2017-09-08 09:03] LABS: BASOPHILS % (AUTO) 0.1 % (0.0-2.0); EOSINOPHILS % (AUTO) 4.6 % (1.0-6.0); HEMATOCRIT 33.9 % (36-46); HEMOGLOBIN 11.2 g/dL (12.0-16.0); LYMPHOCYTES # (AUTO) 1.5 K/uL (1.0-4.8); LYMPHOCYTES % (AUTO) 17.8 % (22.0-44.0); MEAN CORPUSCULAR HEMOGLOBIN 31.5 pg (26.0-34.0); MEAN CORPUSCULAR HGB CONC 33.1 G/dL (31.0-37.0); MEAN CORPUSCULAR VOLUME 95 fL (80-100); MONOCYTES # (AUTO) 0.5 K/uL (0.1-1.0); MONOCYTES % (AUTO) 6.7 % (2.0-9.0); NEUTROPHILS # (AUTO) 5.8 K/uL (1.8-7.7); NEUTROPHILS % (AUTO) 70.8 % (40.0-70.0); PLATELET COUNT (AUTO) 195 K/uL (150-450); RED BLOOD CELL COUNT(AUTO) 3.56 MIL/uL (4.00-5.20); RED CELL DISTRIBUTION WIDTH 16.5 % (11.5-14.5); WHITE BLOOD COUNT (AUTO) 8.2 K/uL (4.5-11.0)
[2017-09-08 09:05] LABS: ANION GAP 6 mmol/L (8-16); CALCIUM, TOTAL 8.8 mg/dL (8.8-10.5); CARBON DIOXIDE 33 mmol/L (22-29); CHLORIDE 103 mmol/L (98-107); CREATININE 1.05 mg/dL (0.60-1.30); GLOMERULAR FILTR. RATE CALC > 60 mL/min (>60); POTASSIUM 3.7 mmol/L (3.5-5.1); SODIUM SERUM 142 mmol/L (136-145); UREA NITROGEN, BLOOD 21 mg/dL (7-18)
[2017-09-08] MEDS: HydrALAZINE HCL 20 MG/ML VIAL IVP PRN (12:07)
[2017-09-08] MEDS: POTASSIUM CHLORIDE 20 MEQ ER TABLET PO PRN (15:39)
[2017-09-08 15:45] LABS: TOTAL PROTEIN,BODY FLUID,REF 1.4 g/dL
[2017-09-08] MEDS: LOSARTAN POTASSIUM 50 MG TABLET PO SCH (20:35)
[2017-09-08] MEDS: PRAVASTATIN SODIUM 40 MG TABLET PO SCH (22:27)
[2017-09-08] MEDS: ZOLPIDEM TARTRATE 5 MG TABLET PO PRN (22:27)
[2017-09-08] MEDS: INSULIN ASPART 100 UNITS/ML SQ PRN (22:33)
[2017-09-09] VITALS (7 sets, daily range): BP systolic 115–159; BP diastolic 50–63
[2017-09-09] MEDS: LEVOTHYROXINE SODIUM 50 MCG TABLET PO SCH (05:43)
[2017-09-09] MEDS: NITROGLYCERIN 2% (1 GM=INCH) PACKET TP SCH ×4 (05:43→22:59)
[2017-09-09 07:10] LABS: B-TYPE NATRIURETIC PEPTIDE 773 pg/mL (0-100)
[2017-09-09 07:22] LABS: ANION GAP 4 mmol/L (8-16); CALCIUM, TOTAL 8.9 mg/dL (8.8-10.5); CARBON DIOXIDE 34 mmol/L (22-29); CHLORIDE 103 mmol/L (98-107); CREATINE KINASE MB 2.3 ng/mL (0-5); CREATINE KINASE, TOTAL 80 U/L (26-192); CREATININE 0.98 mg/dL (0.60-1.30); GLOMERULAR FILTR. RATE CALC > 60 mL/min (>60); POTASSIUM 3.6 mmol/L (3.5-5.1); SODIUM SERUM 141 mmol/L (136-145); UREA NITROGEN, BLOOD 21 mg/dL (7-18)
[2017-09-09] MEDS: FLUTICASONE/VILANTEROL 200-25 MCG/INH INHALER [14] IH SCH (10:01)
[2017-09-09] MEDS: POLYMYXIN B/TRIMETHOPRIM 10 ML OPHTHALMIC SOLUTION OU SCH ×4 (10:01→20:11)
[2017-09-09] MEDS: FUROSEMIDE 40 MG/4 ML VIAL IVP SCH ×2 (10:01→20:11)
[2017-09-09] MEDS: ENOXAPARIN SODIUM 40 MG/0.4 ML PF SYRINGE SQ SCH (10:01)
[2017-09-09] MEDS: PANTOPRAZOLE SODIUM 40 MG/VIAL IVP SCH (10:01)
[2017-09-09] MEDS: PREGABALIN 75 MG CAPSULE PO SCH ×2 (10:02→20:10)
[2017-09-09] MEDS: CHOLECALCIFEROL (VIT D3) 2,000 UNITS TABLET PO SCH (10:02)
[2017-09-09] MEDS: ASPIRIN 81 MG EC TABLET PO SCH (10:02)
[2017-09-09] MEDS: PRASUGREL HCL 10 MG TABLET PO SCH (10:02)
[2017-09-09] MEDS: SENNA 187 MG TABLET PO SCH (10:02)
[2017-09-09] MEDS: CloNIDine HCL 0.1 MG TABLET PO SCH ×2 (10:05→20:10)
[2017-09-09] MEDS: MORPHINE SULFATE 2 MG/ML SYRINGE IVP PRN (10:08)
[2017-09-09] MEDS: AmLODIPine BESYLATE 5 MG TABLET PO SCH (12:00)
[2017-09-09] MEDS: POTASSIUM CHLORIDE 20 MEQ ER TABLET PO PRN (13:23)
[2017-09-09 18:03] LABS: MAGNESIUM 2.2 mg/dL (1.80-2.40); POTASSIUM 4.1 mmol/L (3.5-5.1)
[2017-09-09] MEDS: LOSARTAN POTASSIUM 50 MG TABLET PO SCH (20:10)
[2017-09-09] MEDS: PRAVASTATIN SODIUM 40 MG TABLET PO SCH (20:10)
[2017-09-09] MEDS: INSULIN ASPART 100 UNITS/ML SQ PRN (20:40)
[2017-09-09] MEDS: ZOLPIDEM TARTRATE 5 MG TABLET PO PRN (22:58)
[2017-09-10] VITALS (8 sets, daily range): BP systolic 141–158; BP diastolic 49–87
[2017-09-10] MEDS: LEVOTHYROXINE SODIUM 50 MCG TABLET PO SCH (05:47)
[2017-09-10] MEDS: NITROGLYCERIN 2% (1 GM=INCH) PACKET TP SCH ×2 (05:48→11:21)
[2017-09-10 06:26] LABS: EOSINOPHILS % (AUTO) 3.8 % (1.0-6.0); HEMATOCRIT 30.3 % (36-46); LYMPHOCYTES # (AUTO) 1.1 K/uL (1.0-4.8); LYMPHOCYTES % (AUTO) 17.4 % (22.0-44.0); MEAN CORPUSCULAR HEMOGLOBIN 31.5 pg (26.0-34.0); MEAN CORPUSCULAR VOLUME 95 fL (80-100); MONOCYTES # (AUTO) 0.6 K/uL (0.1-1.0); MONOCYTES % (AUTO) 9.4 % (2.0-9.0); NEUTROPHILS # (AUTO) 4.6 K/uL (1.8-7.7); NEUTROPHILS % (AUTO) 69.4 % (40.0-70.0); PLATELET COUNT (AUTO) 191 K/uL (150-450); RED BLOOD CELL COUNT(AUTO) 3.18 MIL/uL (4.00-5.20); RED CELL DISTRIBUTION WIDTH 16.6 % (11.5-14.5); WHITE BLOOD COUNT (AUTO) 6.6 K/uL (4.5-11.0)
[2017-09-10 06:56] LABS: ANION GAP 2 mmol/L (8-16); CALCIUM, TOTAL 8.8 mg/dL (8.8-10.5); CARBON DIOXIDE 35 mmol/L (22-29); CHLORIDE 105 mmol/L (98-107); CREATININE 1.05 mg/dL (0.60-1.30); GLOMERULAR FILTR. RATE CALC > 60 mL/min (>60); POTASSIUM 3.7 mmol/L (3.5-5.1); SODIUM SERUM 142 mmol/L (136-145); UREA NITROGEN, BLOOD 21 mg/dL (7-18)
[2017-09-10 07:01] LABS: B-TYPE NATRIURETIC PEPTIDE 693 pg/mL (0-100)
[2017-09-10] MEDS: FUROSEMIDE 40 MG/4 ML VIAL IVP SCH (08:44)
[2017-09-10] MEDS: PANTOPRAZOLE SODIUM 40 MG/VIAL IVP SCH ×2 (08:44→14:26)
[2017-09-10] MEDS: CloNIDine HCL 0.1 MG TABLET PO SCH ×2 (08:45→20:17)
[2017-09-10] MEDS: ASPIRIN 81 MG EC TABLET PO SCH (08:45)
[2017-09-10] MEDS: ENOXAPARIN SODIUM 40 MG/0.4 ML PF SYRINGE SQ SCH (08:45)
[2017-09-10] MEDS: POLYMYXIN B/TRIMETHOPRIM 10 ML OPHTHALMIC SOLUTION OU SCH ×4 (08:49→20:18)
[2017-09-10] MEDS: FLUTICASONE/VILANTEROL 200-25 MCG/INH INHALER [14] IH SCH (08:49)
[2017-09-10] MEDS: CHOLECALCIFEROL (VIT D3) 2,000 UNITS TABLET PO SCH (08:50)
[2017-09-10] MEDS: PRASUGREL HCL 10 MG TABLET PO SCH (08:50)
[2017-09-10] MEDS: SENNA 187 MG TABLET PO SCH (08:50)
[2017-09-10] MEDS: PREGABALIN 75 MG CAPSULE PO SCH ×2 (08:50→20:17)
[2017-09-10] MEDS: AmLODIPine BESYLATE 5 MG TABLET PO SCH (11:21)
[2017-09-10] MEDS ORDERED: SODIUM CHLORIDE 0.9% 50 ML ONE (14:19)
[2017-09-10] MEDS: MORPHINE SULFATE 2 MG/ML SYRINGE IVP PRN ×3 (14:27→23:00)
[2017-09-10] MEDS: INSULIN ASPART 100 UNITS/ML SQ PRN ×2 (15:03→18:48)
[2017-09-10] MEDS: LEVOFLOXACIN 500 MG/D5% WATER 100 ML IV SCH (15:47)
[2017-09-10] MEDS: POTASSIUM CHLORIDE 20 MEQ ER TABLET PO PRN (15:56)
[2017-09-10] MEDS: CARVEDILOL 3.125 MG TABLET PO SCH (20:15)
[2017-09-10] MEDS: FUROSEMIDE 40 MG TABLET PO SCH (20:16)
[2017-09-10] MEDS: LOSARTAN POTASSIUM 50 MG TABLET PO SCH (20:16)
[2017-09-10] MEDS: PRAVASTATIN SODIUM 40 MG TABLET PO SCH (20:17)
[2017-09-10] MEDS: ZOLPIDEM TARTRATE 5 MG TABLET PO PRN (23:00)
[2017-09-11 05:34] VITALS: BP 180/84
[2017-09-11 05:56] VITALS: BP 151/66
[2017-09-11] MEDS ORDERED: SODIUM CHLORIDE 0.9% 0 ML IV ONE (05:59)
[2017-09-11] MEDS: LEVOTHYROXINE SODIUM 50 MCG TABLET PO SCH (06:12)
[2017-09-11] MEDS: INSULIN ASPART 100 UNITS/ML SQ PRN (06:16)
[2017-09-11 07:05] VITALS: BP 164/56
[2017-09-11] MEDS: FLUTICASONE/VILANTEROL 200-25 MCG/INH INHALER [14] IH SCH (07:56)
[2017-09-11] MEDS: POLYMYXIN B/TRIMETHOPRIM 10 ML OPHTHALMIC SOLUTION OU SCH ×2 (07:56→12:33)
[2017-09-11] MEDS: PANTOPRAZOLE SODIUM 40 MG/VIAL IVP SCH (07:56)
[2017-09-11] MEDS: AmLODIPine BESYLATE 5 MG TABLET PO SCH (07:57)
[2017-09-11] MEDS: FUROSEMIDE 40 MG TABLET PO SCH (07:57)
[2017-09-11] MEDS: CARVEDILOL 3.125 MG TABLET PO SCH (07:57)
[2017-09-11] MEDS: ASPIRIN 81 MG EC TABLET PO SCH (07:57)
[2017-09-11] MEDS: CloNIDine HCL 0.1 MG TABLET PO SCH (07:58)
[2017-09-11] MEDS: PRASUGREL HCL 10 MG TABLET PO SCH (07:58)
[2017-09-11] MEDS: PREGABALIN 75 MG CAPSULE PO SCH (07:59)
[2017-09-11] MEDS: SENNA 187 MG TABLET PO SCH (07:59)
[2017-09-11] MEDS: CHOLECALCIFEROL (VIT D3) 2,000 UNITS TABLET PO SCH (08:00)
[2017-09-11] MEDS: ENOXAPARIN SODIUM 40 MG/0.4 ML PF SYRINGE SQ SCH (08:00)
[2017-09-11] MEDS ORDERED: LEVO500 PO (11:06)
[2017-09-11] MEDS: LEVOFLOXACIN 500 MG/D5% WATER 100 ML IV SCH (11:20)
[2017-09-11 11:39] VITALS: BP 159/71
[2017-09-11] MEDS: MORPHINE SULFATE 2 MG/ML SYRINGE IVP PRN (12:33)
[2017-09-15 18:02] LABS: GLUCOSE,POINT OF CARE 84 MG/DL (70-110)
[2017-09-16 23:53] LABS: GLUCOSE,POINT OF CARE 128 MG/DL (70-110)
[2017-09-16 23:53] LABS: GLUCOSE,POINT OF CARE 127 MG/DL (70-110)
[2017-09-16 23:53] LABS: GLUCOSE,POINT OF CARE 131 MG/DL (70-110)
[2017-09-16 23:58] LABS: GLUCOSE COMMENT 1 Received Meds; GLUCOSE,POINT OF CARE 198 MG/DL (70-110)
[2017-09-16 23:58] LABS: GLUCOSE COMMENT 1 Received Meds; GLUCOSE,POINT OF CARE 155 MG/DL (70-110)
[2017-09-16 23:58] LABS: GLUCOSE,POINT OF CARE 133 MG/DL (70-110)
[2017-09-16 23:58] LABS: GLUCOSE COMMENT 1 Received Meds; GLUCOSE,POINT OF CARE 141 MG/DL (70-110)
[2017-09-16 23:58] LABS: GLUCOSE,POINT OF CARE 161 MG/DL (70-110)
[2017-09-16 23:58] LABS: GLUCOSE,POINT OF CARE 128 MG/DL (70-110)
[2017-09-16 23:58] LABS: GLUCOSE COMMENT 1 Received Meds; GLUCOSE,POINT OF CARE 180 MG/DL (70-110)
[2017-09-16 23:58] LABS: GLUCOSE COMMENT 1 Received Meds; GLUCOSE,POINT OF CARE 155 MG/DL (70-110)
[2017-09-16 23:59] LABS: GLUCOSE,POINT OF CARE 120 MG/DL (70-110)
[2017-09-16 23:59] LABS: GLUCOSE COMMENT 1 Received Meds; GLUCOSE,POINT OF CARE 141 MG/DL (70-110)
[2017-09-16 23:59] LABS: GLUCOSE,POINT OF CARE 130 MG/DL (70-110)
== END 2017-09-11 13:30 | disposition home or self-care (01) | DRG 291 ==
LOC: EMS 14:00 → 5S 18:30
PROVIDERS: ADMIT Internal Medicine Geriatric Medicine; ATTEND Internal Medicine Geriatric Medicine
PROC: 0W993ZZ Drainage of Right Pleural Cavity, Percutaneous Approach (ICD-10-PCS; principal; 2017-09-07)
DX: I13.0 Hypertensive heart and chronic kidney disease with heart failure and stage 1 through stage 4 chronic kidney disease, or unspecified chronic kidney disease (principal); I50.21 Acute systolic (congestive) heart failure; J96.91 Respiratory failure, unspecified with hypoxia; N39.0 Urinary tract infection, site not specified; E11.22 Type 2 diabetes mellitus with diabetic chronic kidney disease; D64.9 Anemia, unspecified; M10.9 Gout, unspecified; E03.9 Hypothyroidism, unspecified; I20.9 Angina pectoris, unspecified; E78.5 Hyperlipidemia, unspecified; G89.4 Chronic pain syndrome; I07.1 Rheumatic tricuspid insufficiency; I34.0 Nonrheumatic mitral (valve) insufficiency; I35.0 Nonrheumatic aortic (valve) stenosis; I35.1 Nonrheumatic aortic (valve) insufficiency; B96.20 Unspecified Escherichia coli [E. coli] as the cause of diseases classified elsewhere; J44.9 Chronic obstructive pulmonary disease, unspecified; N18.3 Chronic kidney disease, stage 3 (moderate); Z79.82 Long term (current) use of aspirin; Z88.0 Allergy status to penicillin; Z90.49 Acquired absence of other specified parts of digestive tract; Z91.19 Patient's noncompliance with other medical treatment and regimen; Z95.2 Presence of prosthetic heart valve; Z95.5 Presence of coronary angioplasty implant and graft
CPT/HCPCS: 32555; 71250; 76942; 82306; 82465; 82607; 82746; 82945; 82962; 83036; 83615; 83735; 83986; 84132; 84157; 84439; 84443; 84550; 87015; 87070; 87086; 87101; 87205; 88108; 89051; 93005; 93306; 94640; 96374; 96375; 97110; 97116; 97162; 97530; 99285; C9113; G0238; J0360; J1650; J1940; J1956; J2270; J2405; J3490; J7040; J7050

== ENCOUNTER → 2018-05-13 | Outpatient (CLI) | payer MEDICARE, MEDICAID ==
[~2018-05-13] MED LIST changes: +BUME1TAB17 PO; +LEVO500 PO; -PHEN-934 PO; -TRAZ-147 PO; +TRAZ-220 PO
[2018-05-13 13:40] LABS: CREATININE 1.53 mg/dL (0.60-1.30)
== END | disposition home or self-care (01) ==
LOC: LABPV 09:46
PROVIDERS: ATTEND Specialist
DX: H47.293 Other optic atrophy, bilateral (principal); I13.0 Hypertensive heart and chronic kidney disease with heart failure and stage 1 through stage 4 chronic kidney disease, or unspecified chronic kidney disease; E11.22 Type 2 diabetes mellitus with diabetic chronic kidney disease; E78.5 Hyperlipidemia, unspecified; E78.00 Pure hypercholesterolemia, unspecified; Z79.4 Long term (current) use of insulin; N18.4 Chronic kidney disease, stage 4 (severe); I50.32 Chronic diastolic (congestive) heart failure; K21.9 Gastro-esophageal reflux disease without esophagitis; E66.9 Obesity, unspecified; M10.9 Gout, unspecified; Z87.891 Personal history of nicotine dependence; Z88.0 Allergy status to penicillin
CPT/HCPCS: 82565; 84520

== ENCOUNTER 2018-09-23 15:19 | Inpatient (IN) | payer MEDICARE, MEDICAID ==
[~2018-09-23] VITALS: Ht 170.2 cm; Wt 73.4 kg
[~2018-09-23 15:19] MED LIST changes: -CHOL200016 PO; +CHOL200059 PO; -HYDR-305 PO; +HYDR-4455 PO; -LOSA50TA37 PO; +LOSA50TA64 PO
[2018-09-23 15:59] LABS: GLUCOSE,POINT OF CARE 102 MG/DL (70-110)
[2018-09-23 18:01] LABS: BASOPHILS % (AUTO) 1.5 % (0.0-2.0); EOSINOPHILS % (AUTO) 2.1 % (1.0-6.0); HEMATOCRIT 32.8 % (36-46); LYMPHOCYTES # (AUTO) 1.4 K/uL (1.0-4.8); LYMPHOCYTES % (AUTO) 20.5 % (22.0-44.0); MEAN CORPUSCULAR HEMOGLOBIN 32.8 pg (26.0-34.0); MEAN CORPUSCULAR HGB CONC 33.6 G/dL (31.0-37.0); MEAN CORPUSCULAR VOLUME 97 fL (80-100); MONOCYTES # (AUTO) 0.6 K/uL (0.1-1.0); MONOCYTES % (AUTO) 9.4 % (2.0-9.0); NEUTROPHILS # (AUTO) 4.4 K/uL (1.8-7.7); NEUTROPHILS % (AUTO) 66.5 % (40.0-70.0); PLATELET COUNT (AUTO) 176 K/uL (150-450); RED BLOOD CELL COUNT(AUTO) 3.36 MIL/uL (4.00-5.20); RED CELL DISTRIBUTION WIDTH 15.7 % (11.5-14.5)
[2018-09-23 18:05] LABS: CREATININE 3.14 mg/dL (0.60-1.30); POTASSIUM 4.6 mmol/L (3.5-5.1)
[2018-09-23 18:17] LABS: PROTHROMBIN TIME 10.2 SEC (9.4-11.6)
[2018-09-23 18:30] LABS: ALBUMIN 4.3 g/dL (3.4-5.0); BILIRUBIN,TOTAL 0.3 mg/dL (0.1-1.0); TOTAL PROTEIN, SERUM 7.3 g/dL (6.4-8.2)
[2018-09-23 18:59] LABS: APPEARANCE,URINE CLOUDY (CLEAR); BILIRUBIN,URINE NEGATIVE (NEGATIVE); GLUCOSE, URINE (UA) NEGATIVE (NEGATIVE); KETONES,URINE NEGATIVE (NEGATIVE); LEUKOCYTE ESTERASE ,URINE LARGE (NEGATIVE); NITRATE,URINE POSITIVE (NEGATIVE); OCCULT BLOOD,URINE NEGATIVE (NEGATIVE); PROTEIN,URINE NEGATIVE (NEGATIVE); UROBILINOGEN,URINE 0.2 mg/dL (<=1.0)
[2018-09-23] MEDS ORDERED: CLON.2 PO (19:22)
[2018-09-23] MEDS ORDERED: SODIUM CHLORIDE 0.9% 1,000 ML IV ONE (19:30)
[2018-09-23 19:46] LABS: BACTERIA,URINE Moderate /HPF (None Seen); RBC,URINE None Seen /HPF (0-2); SQUAMOUS EPITHELIAL CELL,UR Few /LPF (None Seen); TRANSITIONAL EPI CELLS,URINE Few /LPF (None Seen); WBC,URINE >100 /HPF (0-5)
[2018-09-23] MEDS ORDERED: NITROGLYCERIN 2% (1 GM=INCH) PACKET TP ONE (20:00)
[2018-09-23] MEDS ORDERED: NITROFURANTOIN MACROCRYSTAL 100 MG CAPSULE PO ONE (20:00)
[2018-09-23] MEDS ORDERED: ASPIRIN 81 MG CHEWABLE TABLET PO ONE (20:00)
[2018-09-23] MEDS ORDERED: ACETAMINOPHEN 325 MG TABLET PO PRN (20:30)
[2018-09-23] MEDS ORDERED: 0.9% SODIUM CHLORIDE 10 ML SYRINGE IVP PRN (20:30)
[2018-09-23] MEDS ORDERED: NITROGLYCERIN 0.4 MG SUBLINGUAL TABLET #25 SL PRN (20:45)
[2018-09-23] MEDS ORDERED: BACLOFEN 10 MG TABLET PO PRN (20:45)
[2018-09-23] MEDS ORDERED: IPRATROPIUM BROMIDE 0.5 MG/2.5 ML NEB SOLUTION NEB PRN (20:45)
[2018-09-23] MEDS ORDERED: BISACODYL 10 MG RECTAL RECTAL SUPPOSITORY PR PRN (20:45)
[2018-09-23] MEDS ORDERED: ALBUTEROL SULFATE/IPRATROPIUM 100-20 MCG/SPRAY 4 GM INHALER IH PRN (20:45)
[2018-09-23] MEDS ORDERED: ALBUTEROL SULFATE 2.5 MG/0.5 ML NEB SOLUTION NEB PRN (20:45)
[2018-09-23] MEDS ORDERED: MAGNESIUM HYDROXIDE SUSPENSION 30 ML UDCUP PO PRN (20:45)
[2018-09-23] MEDS ORDERED: ONDANSETRON HCL 4 MG/2 ML VIAL IVP PRN (20:45)
[2018-09-23] MEDS ORDERED: LOSARTAN POTASSIUM 50 MG TABLET PO SCH (21:00)
[2018-09-23] MEDS: NITROFURANTOIN/NITROFURAN MAC 100 MG CAPSULE [MACROBID] PO SCH (21:00)
[2018-09-23] MEDS ORDERED: DEXTROSE 50%-WATER 25 GM/50 ML SYRINGE IVP PRN (21:00)
[2018-09-23 21:22] VITALS: BP 155/71
[2018-09-23] MEDS: PRAVASTATIN SODIUM 40 MG TABLET PO SCH (21:53)
[2018-09-23] MEDS: ISOSORB DINIT/HYDRALAZINE HCL 20-37.5 MG TABLET PO SCH (21:54)
[2018-09-23] MEDS: PREGABALIN 75 MG CAPSULE PO SCH (21:54)
[2018-09-23] MEDS: FUROSEMIDE 20 MG/2 ML VIAL IVP SCH (21:54)
[2018-09-23] MEDS: CloNIDine HCL 0.2 MG TABLET PO SCH (21:55)
[2018-09-23] MEDS: TraZODone HCL 100 MG TABLET PO SCH (21:55)
[2018-09-23 23:15] VITALS: BP 113/41
[2018-09-23] MEDS: ZOLPIDEM TARTRATE 5 MG TABLET PO PRN (23:30)
[2018-09-23] MEDS: HYDROCODONE/ACETAMINOPHEN 10-325 MG TABLET PO PRN (23:31)
[2018-09-24 04:27] VITALS: BP 102/32
[2018-09-24] MEDS: LEVOTHYROXINE SODIUM 50 MCG TABLET PO SCH (05:29)
[2018-09-24 05:40] LABS: BASOPHILS % (AUTO) 1.2 % (0.0-2.0); EOSINOPHILS % (AUTO) 4.2 % (1.0-6.0); HEMATOCRIT 26.5 % (36-46); HEMOGLOBIN 8.9 g/dL (12.0-16.0); LYMPHOCYTES # (AUTO) 1.1 K/uL (1.0-4.8); MEAN CORPUSCULAR HEMOGLOBIN 32.5 pg (26.0-34.0); MEAN CORPUSCULAR HGB CONC 33.6 G/dL (31.0-37.0); MEAN CORPUSCULAR VOLUME 97 fL (80-100); MONOCYTES # (AUTO) 0.5 K/uL (0.1-1.0); MONOCYTES % (AUTO) 11.7 % (2.0-9.0); NEUTROPHILS # (AUTO) 2.2 K/uL (1.8-7.7); NEUTROPHILS % (AUTO) 55.9 % (40.0-70.0); PLATELET COUNT (AUTO) 126 K/uL (150-450); RED BLOOD CELL COUNT(AUTO) 2.74 MIL/uL (4.00-5.20); RED CELL DISTRIBUTION WIDTH 15.9 % (11.5-14.5)
[2018-09-24 05:58] LABS: LACTIC ACID 0.4 mmol/L (0.4-2.0)
[2018-09-24 06:08] LABS: HEMOGLOBIN A1C 5.2 % (4.5-6.2)
[2018-09-24 06:23] LABS: ALBUMIN 3.2 g/dL (3.4-5.0); BILIRUBIN,TOTAL 0.3 mg/dL (0.1-1.0); CALCIUM, TOTAL 8.5 mg/dL (8.8-10.5); CHOL/HDL RATIO 1.6 (3.9-5.7); CREATININE 2.73 mg/dL (0.60-1.30); MAGNESIUM 2.4 mg/dL (1.80-2.40); PHOSPHORUS 4.5 mg/dL (2.5-4.9); POTASSIUM 4.3 mmol/L (3.5-5.1); TOTAL PROTEIN, SERUM 5.7 g/dL (6.4-8.2)
[2018-09-24 06:52] LABS: FREE T4 (FREE THYROXINE) 0.72 ng/dL (0.76-1.46)
[2018-09-24 07:42] VITALS: BP 108/51
[2018-09-24] MEDS: FUROSEMIDE 20 MG/2 ML VIAL IVP SCH ×2 (08:02→20:39)
[2018-09-24] MEDS: PANTOPRAZOLE SODIUM 40 MG DR TABLET PO SCH (08:07)
[2018-09-24] MEDS: FLUTICASONE/SALMETEROL 500 MCG-50 MCG/INH DISKUS INHALER [28] IH SCH ×2 (08:08→20:34)
[2018-09-24] MEDS: CHOLECALCIFEROL (VIT D3) 2,000 UNITS TABLET PO SCH (08:11)
[2018-09-24] MEDS: COLCHICINE 0.6 MG TABLET PO SCH (08:12)
[2018-09-24] MEDS: PREGABALIN 75 MG CAPSULE PO SCH ×2 (08:12→20:35)
[2018-09-24] MEDS: SENNA 187 MG TABLET PO SCH (08:13)
[2018-09-24] MEDS: NITROFURANTOIN/NITROFURAN MAC 100 MG CAPSULE [MACROBID] PO SCH (08:13)
[2018-09-24] MEDS: PRASUGREL HCL 10 MG TABLET PO SCH (08:13)
[2018-09-24] MEDS: CloNIDine HCL 0.2 MG TABLET PO SCH (09:00)
[2018-09-24] MEDS: ISOSORB DINIT/HYDRALAZINE HCL 20-37.5 MG TABLET PO SCH ×3 (09:00→20:36)
[2018-09-24] MEDS ORDERED: INSULIN GLARGINE,HUM.REC.ANLOG 100 UNITS/ML SQ SCH (09:00)
[2018-09-24] MEDS: LORATADINE 10 MG TABLET PO SCH (09:43)
[2018-09-24 09:55] VITALS: BP 103/43
[2018-09-24] MEDS: HYDROCODONE/ACETAMINOPHEN 10-325 MG TABLET PO PRN (10:55)
[2018-09-24] MEDS: INSULIN LISPRO 100 UNITS/ML SQ PRN (11:48)
[2018-09-24 13:29] LABS: GLUCOMETER DEV NAME(LOC) 5S.2; GLUCOSE,POINT OF CARE 102 MG/DL (70-110)
[2018-09-24 13:29] LABS: GLUCOMETER DEV NAME(LOC) 5S.2; GLUCOSE,POINT OF CARE 101 MG/DL (70-110)
[2018-09-24 13:29] LABS: GLUCOMETER DEV NAME(LOC) 5S.1; GLUCOSE,POINT OF CARE 114 MG/DL (70-110)
[2018-09-24 13:30] LABS: GLUCOMETER DEV NAME(LOC) 5S.1; GLUCOSE,POINT OF CARE 87 MG/DL (70-110)
[2018-09-24] MEDS ORDERED: SODIUM CHLORIDE 0.9% 100 ML ONE (14:56)
[2018-09-24] MEDS: CefoTEtan DISOD 1 GM/DEXTROSE 50 ML IV SCH (14:57)
[2018-09-24 17:23] VITALS: BP 114/39
[2018-09-24 19:56] VITALS: BP 119/44
[2018-09-24] MEDS: TraZODone HCL 100 MG TABLET PO SCH (20:35)
[2018-09-24] MEDS: PRAVASTATIN SODIUM 40 MG TABLET PO SCH (20:35)
[2018-09-24 21:19] LABS: GLUCOMETER DEV NAME(LOC) 5S.2; GLUCOSE,POINT OF CARE 79 MG/DL (70-110)
[2018-09-24 21:19] LABS: GLUCOMETER DEV NAME(LOC) 5S.1; GLUCOSE,POINT OF CARE 108 MG/DL (70-110)
[2018-09-24 22:00] LABS: APPEARANCE,URINE TURBID (CLEAR); BILIRUBIN,URINE NEGATIVE (NEGATIVE); GLUCOSE, URINE (UA) NEGATIVE (NEGATIVE); KETONES,URINE NEGATIVE (NEGATIVE); LEUKOCYTE ESTERASE ,URINE LARGE (NEGATIVE); NITRATE,URINE NEGATIVE (NEGATIVE); OCCULT BLOOD,URINE NEGATIVE (NEGATIVE); PH,URINE 5.5 (5.0-8.0); PROTEIN,URINE POS 1+ (NEGATIVE); UROBILINOGEN,URINE 0.2 mg/dL (<=1.0)
[2018-09-24 22:06] LABS: RBC,URINE 0-2 /HPF (0-2); WBC,URINE 51-100 /HPF (0-5)
[2018-09-24 22:07] LABS: BACTERIA,URINE Moderate /HPF (None Seen); SQUAMOUS EPITHELIAL CELL,UR Few /LPF (None Seen)
[2018-09-24 22:31] LABS: CREATININE,URINE RANDOM 65.3 mg/dL (30.0-125.0); SODIUM,URINE RANDOM 34 mmol/l (20-110); UREA NITROGEN,URINE RANDOM 469 mg/dL (350-1000)
[2018-09-24] MEDS: ZOLPIDEM TARTRATE 5 MG TABLET PO PRN (22:33)
[2018-09-25] VITALS (7 sets, daily range): BP systolic 108–141; BP diastolic 40–96
[2018-09-25] MEDS: HYDROCODONE/ACETAMINOPHEN 10-325 MG TABLET PO PRN ×3 (05:58→22:04)
[2018-09-25] MEDS: LEVOTHYROXINE SODIUM 50 MCG TABLET PO SCH (05:59)
[2018-09-25 06:37] LABS: CALCIUM, TOTAL 8.4 mg/dL (8.8-10.5); CREATININE 2.69 mg/dL (0.60-1.30); MAGNESIUM 2.7 mg/dL (1.80-2.40); PHOSPHORUS 4.4 mg/dL (2.5-4.9); POTASSIUM 4.4 mmol/L (3.5-5.1)
[2018-09-25 07:17] LABS: % IRON SATURATION 30.9 % (22-44)
[2018-09-25 07:22] LABS: BASOPHILS % (AUTO) 1.3 % (0.0-2.0); EOSINOPHILS % (AUTO) 5.7 % (1.0-6.0); HEMATOCRIT 28.5 % (36-46); HEMOGLOBIN 9.8 g/dL (12.0-16.0); LYMPHOCYTES # (AUTO) 1.1 K/uL (1.0-4.8); LYMPHOCYTES % (AUTO) 22.9 % (22.0-44.0); MEAN CORPUSCULAR HEMOGLOBIN 33.7 pg (26.0-34.0); MEAN CORPUSCULAR HGB CONC 34.4 G/dL (31.0-37.0); MEAN CORPUSCULAR VOLUME 98 fL (80-100); MONOCYTES # (AUTO) 0.5 K/uL (0.1-1.0); MONOCYTES % (AUTO) 10.8 % (2.0-9.0); NEUTROPHILS # (AUTO) 2.9 K/uL (1.8-7.7); NEUTROPHILS % (AUTO) 59.3 % (40.0-70.0); PLATELET COUNT (AUTO) 139 K/uL (150-450); RED BLOOD CELL COUNT(AUTO) 2.91 MIL/uL (4.00-5.20); RED CELL DISTRIBUTION WIDTH 15.6 % (11.5-14.5)
[2018-09-25] MEDS: PANTOPRAZOLE SODIUM 40 MG DR TABLET PO SCH (08:54)
[2018-09-25] MEDS: FLUTICASONE/SALMETEROL 500 MCG-50 MCG/INH DISKUS INHALER [28] IH SCH ×2 (08:54→21:15)
[2018-09-25] MEDS: PRASUGREL HCL 10 MG TABLET PO SCH (08:56)
[2018-09-25] MEDS: SENNA 187 MG TABLET PO SCH (08:56)
[2018-09-25] MEDS: CHOLECALCIFEROL (VIT D3) 2,000 UNITS TABLET PO SCH (08:58)
[2018-09-25] MEDS: COLCHICINE 0.6 MG TABLET PO SCH (08:59)
[2018-09-25] MEDS: PREGABALIN 75 MG CAPSULE PO SCH ×2 (08:59→21:14)
[2018-09-25] MEDS: FUROSEMIDE 20 MG/2 ML VIAL IVP SCH ×2 (09:00→21:00)
[2018-09-25] MEDS: LORATADINE 10 MG TABLET PO SCH ×2 (09:00→12:28)
[2018-09-25] MEDS: ISOSORB DINIT/HYDRALAZINE HCL 20-37.5 MG TABLET PO SCH ×2 (09:00→21:15)
[2018-09-25] MEDS: EPOETIN ALFA 10,000 UNITS/ML VIAL SQ SCH (09:01)
[2018-09-25] MEDS: CefoTEtan DISOD 1 GM/DEXTROSE 50 ML IV SCH (12:28)
[2018-09-25] MEDS: INSULIN LISPRO 100 UNITS/ML SQ PRN (12:32)
[2018-09-25 15:09] LABS: GLUCOMETER DEV NAME(LOC) 5S.2; GLUCOSE,POINT OF CARE 85 MG/DL (70-110)
[2018-09-25] MEDS: TraZODone HCL 100 MG TABLET PO SCH (21:14)
[2018-09-25] MEDS: PRAVASTATIN SODIUM 40 MG TABLET PO SCH (21:14)
[2018-09-25 21:39] LABS: GLUCOMETER DEV NAME(LOC) 5N.2; GLUCOSE,POINT OF CARE 116 MG/DL (70-110)
[2018-09-25 21:39] LABS: GLUCOMETER DEV NAME(LOC) 5N.2; GLUCOSE,POINT OF CARE 161 MG/DL (70-110)
[2018-09-25] MEDS: ZOLPIDEM TARTRATE 5 MG TABLET PO PRN (23:26)
[2018-09-26 04:39] LABS: GLUCOMETER DEV NAME(LOC) 5S.2; GLUCOSE,POINT OF CARE 120 MG/DL (70-110)
[2018-09-26 05:36] VITALS: BP 120/43
[2018-09-26] MEDS: LEVOTHYROXINE SODIUM 50 MCG TABLET PO SCH (05:47)
[2018-09-26 06:31] LABS: HEMATOCRIT 27.2 % (36-46); HEMOGLOBIN 9.3 g/dL (12.0-16.0); LYMPHOCYTES % (AUTO) 20.4 % (22.0-44.0); MEAN CORPUSCULAR HEMOGLOBIN 33.1 pg (26.0-34.0); MEAN CORPUSCULAR HGB CONC 34.1 G/dL (31.0-37.0); MEAN CORPUSCULAR VOLUME 97 fL (80-100); MONOCYTES # (AUTO) 0.5 K/uL (0.1-1.0); MONOCYTES % (AUTO) 9.6 % (2.0-9.0); NEUTROPHILS # (AUTO) 3.2 K/uL (1.8-7.7); PLATELET COUNT (AUTO) 123 K/uL (150-450)
[2018-09-26 07:03] LABS: CALCIUM, TOTAL 8.4 mg/dL (8.8-10.5); CREATININE 2.02 mg/dL (0.60-1.30); MAGNESIUM 2.9 mg/dL (1.80-2.40); PHOSPHORUS 3.8 mg/dL (2.5-4.9); POTASSIUM 4.5 mmol/L (3.5-5.1)
[2018-09-26 07:40] VITALS: BP 136/43
[2018-09-26] MEDS: ISOSORB DINIT/HYDRALAZINE HCL 20-37.5 MG TABLET PO SCH ×2 (07:57→19:55)
[2018-09-26] MEDS: FLUTICASONE/SALMETEROL 500 MCG-50 MCG/INH DISKUS INHALER [28] IH SCH ×2 (07:57→19:54)
[2018-09-26] MEDS: CHOLECALCIFEROL (VIT D3) 2,000 UNITS TABLET PO SCH (07:58)
[2018-09-26] MEDS: PRASUGREL HCL 10 MG TABLET PO SCH (07:58)
[2018-09-26] MEDS: PREGABALIN 75 MG CAPSULE PO SCH ×2 (07:58→19:55)
[2018-09-26] MEDS: SENNA 187 MG TABLET PO SCH (07:58)
[2018-09-26] MEDS: LORATADINE 10 MG TABLET PO SCH ×2 (07:59→09:00)
[2018-09-26] MEDS: COLCHICINE 0.6 MG TABLET PO SCH (07:59)
[2018-09-26] MEDS: PANTOPRAZOLE SODIUM 40 MG DR TABLET PO SCH (08:00)
[2018-09-26] MEDS: HYDROCODONE/ACETAMINOPHEN 10-325 MG TABLET PO PRN ×2 (08:46→19:57)
[2018-09-26] MEDS: FUROSEMIDE 20 MG/2 ML VIAL IVP SCH ×2 (09:00→19:58)
[2018-09-26] MEDS ORDERED: ALBUTEROL SULFATE 2.5 MG/0.5 ML NEB SOLUTION NEB PRN (09:45)
[2018-09-26] MEDS ORDERED: IPRATROPIUM BROMIDE 0.5 MG/2.5 ML NEB SOLUTION NEB PRN (09:45)
[2018-09-26 11:16] VITALS: BP 122/48
[2018-09-26] MEDS: CefoTEtan DISOD 1 GM/DEXTROSE 50 ML IV SCH (13:26)
[2018-09-26 16:10] VITALS: BP 132/52
[2018-09-26] MEDS: TraZODone HCL 100 MG TABLET PO SCH (19:54)
[2018-09-26] MEDS: PRAVASTATIN SODIUM 40 MG TABLET PO SCH (19:54)
[2018-09-26 19:55] VITALS: BP 136/42
[2018-09-26] MEDS: INSULIN LISPRO 100 UNITS/ML SQ PRN (20:57)
[2018-09-26] MEDS: ZOLPIDEM TARTRATE 5 MG TABLET PO PRN (21:49)
[2018-09-26 23:42] VITALS: BP 122/42
[2018-09-27 05:13] VITALS: BP 129/43
[2018-09-27] MEDS: LEVOTHYROXINE SODIUM 50 MCG TABLET PO SCH (06:02)
[2018-09-27] MEDS: HYDROCODONE/ACETAMINOPHEN 10-325 MG TABLET PO PRN ×2 (06:06→11:34)
[2018-09-27 07:50] VITALS: BP 137/49
[2018-09-27] MEDS: PREGABALIN 75 MG CAPSULE PO SCH (08:56)
[2018-09-27] MEDS: PRASUGREL HCL 10 MG TABLET PO SCH (08:56)
[2018-09-27] MEDS: SENNA 187 MG TABLET PO SCH (08:56)
[2018-09-27] MEDS: PANTOPRAZOLE SODIUM 40 MG DR TABLET PO SCH (08:56)
[2018-09-27] MEDS: ISOSORB DINIT/HYDRALAZINE HCL 20-37.5 MG TABLET PO SCH (08:56)
[2018-09-27] MEDS: LORATADINE 10 MG TABLET PO SCH (08:56)
[2018-09-27] MEDS: COLCHICINE 0.6 MG TABLET PO SCH (08:56)
[2018-09-27] MEDS: FUROSEMIDE 20 MG/2 ML VIAL IVP SCH (08:58)
[2018-09-27] MEDS: FLUTICASONE/SALMETEROL 500 MCG-50 MCG/INH DISKUS INHALER [28] IH SCH (08:58)
[2018-09-27] MEDS: EPOETIN ALFA 10,000 UNITS/ML VIAL SQ SCH (09:04)
[2018-09-27] MEDS: CHOLECALCIFEROL (VIT D3) 2,000 UNITS TABLET PO SCH (09:05)
[2018-09-27 11:04] LABS: GLUCOMETER DEV NAME(LOC) 5N.1; GLUCOSE,POINT OF CARE 137 MG/DL (70-110)
[2018-09-27 11:04] LABS: GLUCOMETER DEV NAME(LOC) 5N.1; GLUCOSE,POINT OF CARE 93 MG/DL (70-110)
[2018-09-27 11:09] LABS: GLUCOMETER DEV NAME(LOC) 5S.1; GLUCOSE,POINT OF CARE 142 MG/DL (70-110)
[2018-09-27 11:09] LABS: GLUCOMETER DEV NAME(LOC) 5N.1; GLUCOSE,POINT OF CARE 87 MG/DL (70-110)
[2018-09-27 11:21] VITALS: BP 139/61
[2018-09-27] MEDS: CefoTEtan DISOD 1 GM/DEXTROSE 50 ML IV SCH (14:03)
[2018-09-27] MEDS ORDERED: SODIUM CHLORIDE 0.9% 100 ML ONE (14:10)
[2018-09-27] MEDS ORDERED: PANT40TA25 PO (14:22)
[2018-09-27] MEDS ORDERED: BISA5TAB12 PO (14:27)
[2018-09-27] MEDS ORDERED: INSU100V SQ (14:30)
[2018-09-27] MEDS ORDERED: IPRNEB IH (14:36)
[2018-09-27] MEDS ORDERED: MOM30 PO (14:37)
[2018-09-27] MEDS ORDERED: ONDA4 PO (14:38)
[2018-09-27] MEDS ORDERED: AUD NEB (14:49)
[2018-09-27] MEDS ORDERED: CEFU250T87 PO (14:57)
[2018-09-27 15:04] VITALS: BP 147/52
[2018-09-27 17:19] LABS: GLUCOMETER DEV NAME(LOC) 5S.1; GLUCOSE,POINT OF CARE 97 MG/DL (70-110)
== END 2018-09-27 15:30 | DRG 682 ==
LOC: EMS 15:20 → 5S 20:28
PROVIDERS: ADMIT Internal Medicine Geriatric Medicine; ATTEND Internal Medicine Geriatric Medicine
DX: N17.9 Acute kidney failure, unspecified (principal); I50.21 Acute systolic (congestive) heart failure; I13.0 Hypertensive heart and chronic kidney disease with heart failure and stage 1 through stage 4 chronic kidney disease, or unspecified chronic kidney disease; D61.818 Other pancytopenia; I42.9 Cardiomyopathy, unspecified; N18.4 Chronic kidney disease, stage 4 (severe); N30.90 Cystitis, unspecified without hematuria; I25.119 Atherosclerotic heart disease of native coronary artery with unspecified angina pectoris; E03.9 Hypothyroidism, unspecified; E11.22 Type 2 diabetes mellitus with diabetic chronic kidney disease; E78.00 Pure hypercholesterolemia, unspecified; E78.5 Hyperlipidemia, unspecified; I35.0 Nonrheumatic aortic (valve) stenosis; J44.9 Chronic obstructive pulmonary disease, unspecified; M10.9 Gout, unspecified; Z79.4 Long term (current) use of insulin; Z79.51 Long term (current) use of inhaled steroids; I25.2 Old myocardial infarction; Z88.0 Allergy status to penicillin; Z82.49 Family history of ischemic heart disease and other diseases of the circulatory system; Z90.49 Acquired absence of other specified parts of digestive tract; Z95.2 Presence of prosthetic heart valve; Z95.5 Presence of coronary angioplasty implant and graft
CPT/HCPCS: 76770; 82570; 83036; 83540; 83550; 83605; 83735; 84100; 84300; 84439; 84443; 84540; 84550; 87086; 93005; 93306; G0378; J0885; J1815; J1940; J3490; J3535; J7030; J7050

== ENCOUNTER → 2018-11-26 | Outpatient (CLI) | payer MEDICARE, MEDICAID ==
[~2018-11-26] MED LIST changes: -ALLO300 PO; -ASPI-556 PO; +AUD NEB; -BACL10TA PO; +BISA5TAB12 PO; -BUME1TAB17 PO; +CEFU250T87 PO; -CLON-570 PO; -HYDR-2924 PO; -INSLAN SQ; +INSU100V SQ; +IPRNEB IH; -LEVO500 PO; -LOSA50TA64 PO; +MOM30 PO; +ONDA4 PO; +PANT40TA25 PO; -POTA10CA44 PO
== END | disposition home or self-care (01) ==
LOC: RADPV 10:17
PROVIDERS: ATTEND Internal Medicine Cardiovascular Disease
DX: I08.1 Rheumatic disorders of both mitral and tricuspid valves (principal); I13.0 Hypertensive heart and chronic kidney disease with heart failure and stage 1 through stage 4 chronic kidney disease, or unspecified chronic kidney disease; E11.22 Type 2 diabetes mellitus with diabetic chronic kidney disease; N18.9 Chronic kidney disease, unspecified; I50.9 Heart failure, unspecified
CPT/HCPCS: 93306

== ENCOUNTER → 2019-08-22 | Outpatient (CLI) | payer MEDICARE, MEDICAID ==
[~2019-08-22] MED LIST changes: +ALLO300 PO; +ASPI-1182 PO; -BISA5TAB12 PO; -CEFU250T87 PO; -COLC0.6T67 PO; +COLC0.6T73 PO; +EPOE10003 SQ; +FLUT16H NASAL; -FLUT1DIS5 IH; -FURO40 PO; -HYDR-4455 PO; -INSU100V SQ; -IPRNEB IH; +LEVO50TA11 PO; -LEVO50TA4 PO; -MOM30 PO; -NITR.4 SL; +NITR0.4T52 SL; -ONDA4 PO
== END | disposition home or self-care (01) ==
LOC: RADPV 09:46
PROVIDERS: ATTEND Internal Medicine Cardiovascular Disease
DX: I08.8 Other rheumatic multiple valve diseases (principal); I50.20 Unspecified systolic (congestive) heart failure; Z95.2 Presence of prosthetic heart valve
CPT/HCPCS: 93306

== ENCOUNTER 2019-09-18 10:52 | Inpatient (IN) | payer MEDICARE, MEDICAID ==
[~2019-09-18] VITALS: Ht 170.2 cm; Wt 68.5 kg
[~2019-09-18 10:52] MED LIST changes: -FLUT16H NASAL
[2019-09-18 11:12] LABS: GLUCOSE,POINT OF CARE 77 MG/DL (70-110)
[2019-09-18] MEDS ORDERED: ASPIRIN 81 MG CHEWABLE TABLET PO ONE (11:30)
[2019-09-18 11:35] LABS: BASOPHILS % (AUTO) 0.8 % (0.0-2.0); EOSINOPHILS % (AUTO) 2.2 % (1.0-6.0); HEMATOCRIT 35.9 % (36-46); LYMPHOCYTES % (AUTO) 21.5 % (22.0-44.0); MEAN CORPUSCULAR HEMOGLOBIN 32.3 pg (26.0-34.0); MEAN CORPUSCULAR HGB CONC 33.3 G/dL (31.0-37.0); MEAN CORPUSCULAR VOLUME 97 fL (80-100); MONOCYTES # (AUTO) 0.3 K/uL (0.1-1.0); MONOCYTES % (AUTO) 7.1 % (2.0-9.0); NEUTROPHILS # (AUTO) 3.1 K/uL (1.8-7.7); NEUTROPHILS % (AUTO) 68.4 % (40.0-70.0); PLATELET COUNT (AUTO) 191 K/uL (150-450); RED CELL DISTRIBUTION WIDTH 15.9 % (11.5-14.5)
[2019-09-18 11:45] LABS: CALCIUM, TOTAL 9.4 mg/dL (8.8-10.5); CREATININE 1.1 mg/dL (0.60-1.30)
[2019-09-18] MEDS ORDERED: ALBUTEROL SULFATE 2.5 MG/0.5 ML NEB SOLUTION NEB PRN (13:15)
[2019-09-18] MEDS ORDERED: ACETAMINOPHEN 325 MG TABLET PO PRN (13:15)
[2019-09-18] MEDS ORDERED: IPRATROPIUM BROMIDE 0.5 MG/2.5 ML NEB SOLUTION NEB PRN (13:15)
[2019-09-18] MEDS ORDERED: ONDANSETRON HCL 4 MG/2 ML VIAL IVP PRN ×2 (13:15)
[2019-09-18] MEDS ORDERED: MAGNESIUM HYDROXIDE SUSPENSION 30 ML UDCUP PO PRN (13:15)
[2019-09-18] MEDS ORDERED: BISACODYL 10 MG RECTAL RECTAL SUPPOSITORY PR PRN (13:15)
[2019-09-18] MEDS ORDERED: ACETAMINOPHEN 500 MG TABLET PO PRN (16:15)
[2019-09-18] MEDS: HYDROCODONE/ACETAMINOPHEN 10-325 MG TABLET PO PRN ×2 (16:42→21:57)
[2019-09-18 17:38] VITALS: BP 127/73
[2019-09-18 20:02] VITALS: BP 114/57
[2019-09-18] MEDS: ISOSORB DINIT/HYDRALAZINE HCL 20-37.5 MG TABLET PO SCH (20:58)
[2019-09-18] MEDS: TraZODone HCL 100 MG TABLET PO SCH (20:58)
[2019-09-18] MEDS: PRAVASTATIN SODIUM 40 MG TABLET PO SCH (20:59)
[2019-09-18] MEDS: HEPARIN SODIUM,PORCINE 5,000 UNITS/ML VIAL SQ SCH (21:09)
[2019-09-18] MEDS: ZOLPIDEM TARTRATE 5 MG TABLET PO PRN (21:57)
[2019-09-18 23:55] VITALS: BP 110/49
[2019-09-19] VITALS (13 sets, daily range): BP systolic 116–153; BP diastolic 42–95
[2019-09-19] MEDS: LEVOTHYROXINE SODIUM 75 MCG TABLET PO SCH (06:53)
[2019-09-19 06:59] LABS: HEMOGLOBIN A1C 5.3 % (4.5-6.2)
[2019-09-19 07:05] LABS: EOSINOPHILS % (AUTO) 4.2 % (1.0-6.0); HEMATOCRIT 30.8 % (36-46); HEMOGLOBIN 10.6 g/dL (12.0-16.0); LYMPHOCYTES # (AUTO) 1.5 K/uL (1.0-4.8); LYMPHOCYTES % (AUTO) 32.4 % (22.0-44.0); MEAN CORPUSCULAR HEMOGLOBIN 33.4 pg (26.0-34.0); MEAN CORPUSCULAR HGB CONC 34.3 G/dL (31.0-37.0); MEAN CORPUSCULAR VOLUME 97 fL (80-100); MONOCYTES # (AUTO) 0.4 K/uL (0.1-1.0); MONOCYTES % (AUTO) 8.9 % (2.0-9.0); NEUTROPHILS # (AUTO) 2.6 K/uL (1.8-7.7); NEUTROPHILS % (AUTO) 53.5 % (40.0-70.0); PLATELET COUNT (AUTO) 157 K/uL (150-450); RED BLOOD CELL COUNT(AUTO) 3.16 MIL/uL (4.00-5.20); RED CELL DISTRIBUTION WIDTH 15.8 % (11.5-14.5)
[2019-09-19 07:26] LABS: CALCIUM, TOTAL 8.7 mg/dL (8.8-10.5); CHOL/HDL RATIO 1.7 (3.9-5.7); CREATININE 1.14 mg/dL (0.60-1.30); FREE T4 (FREE THYROXINE) 1.05 ng/dL (0.76-1.46); MAGNESIUM 2.2 mg/dL (1.80-2.40); POTASSIUM 4.5 mmol/L (3.5-5.1); THYROID STIMULATING HORMONE 2.66 uIU/mL (0.36-3.74)
[2019-09-19] MEDS: HYDROCODONE/ACETAMINOPHEN 10-325 MG TABLET PO PRN ×3 (07:54→21:59)
[2019-09-19] MEDS: ALLOPURINOL 300 MG TABLET PO SCH (07:55)
[2019-09-19] MEDS: PRASUGREL HCL 10 MG TABLET PO SCH (07:55)
[2019-09-19] MEDS: ASPIRIN 81 MG EC TABLET PO SCH (07:55)
[2019-09-19] MEDS: COLCHICINE 0.6 MG TABLET PO SCH (07:55)
[2019-09-19] MEDS: SENNA 187 MG TABLET PO SCH (07:55)
[2019-09-19] MEDS: ISOSORB DINIT/HYDRALAZINE HCL 20-37.5 MG TABLET PO SCH ×2 (07:55→20:51)
[2019-09-19] MEDS: LORATADINE 10 MG TABLET PO SCH (07:55)
[2019-09-19] MEDS: PANTOPRAZOLE SODIUM 40 MG DR TABLET PO SCH (07:56)
[2019-09-19] MEDS: CHOLECALCIFEROL (VIT D3) 2,000 UNITS TABLET PO SCH (07:56)
[2019-09-19] MEDS: HEPARIN SODIUM,PORCINE 5,000 UNITS/ML VIAL SQ SCH ×2 (07:56→20:52)
[2019-09-19] MEDS ORDERED: PANTOPRAZOLE SODIUM 40 MG DR TABLET PO SCH (09:00)
[2019-09-19] MEDS ORDERED: SODIUM BICARBONATE 50 MEQ/50 ML VIAL ONE (12:03)
[2019-09-19] MEDS ORDERED: IOHEXOL 300 MG/ML 150 ML VIAL ONE (12:03)
[2019-09-19] MEDS ORDERED: HEPARIN SODIUM 1000 UNITS/NS 1,000 ML ONE (12:03)
[2019-09-19] MEDS ORDERED: LIDOCAINE/PF 1% 30 ML VIAL ONE (12:03)
[2019-09-19] MEDS ORDERED: HEPARIN SODIUM 2,000 UNITS in HEPARIN SODIUM 1000 UNITS/NS 1,000 ML IARTER ONE (12:55)
[2019-09-19] MEDS ORDERED: SODIUM CHLORIDE 0.9% 500 ML IV ONE (12:55)
[2019-09-19] MEDS ORDERED: IOHEXOL 300 MG/ML 50 ML VIAL ONE (12:56)
[2019-09-19] MEDS ORDERED: IOHEXOL 300 MG/ML 150 ML VIAL IARTER ONE (13:00)
[2019-09-19] MEDS ORDERED: LIDOCAINE 1% 30 ML/SOD BICARB 8.4% 4 ML SQ ONE (13:00)
[2019-09-19] MEDS: TraZODone HCL 100 MG TABLET PO SCH (20:51)
[2019-09-19] MEDS: PRAVASTATIN SODIUM 40 MG TABLET PO SCH (20:51)
[2019-09-19] MEDS: ZOLPIDEM TARTRATE 5 MG TABLET PO PRN (21:59)
[2019-09-20] VITALS (8 sets, daily range): BP systolic 106–139; BP diastolic 45–74
[2019-09-20] MEDS: LEVOTHYROXINE SODIUM 75 MCG TABLET PO SCH (06:31)
[2019-09-20] MEDS: HYDROCODONE/ACETAMINOPHEN 10-325 MG TABLET PO PRN ×3 (08:05→21:29)
[2019-09-20] MEDS: ISOSORB DINIT/HYDRALAZINE HCL 20-37.5 MG TABLET PO SCH ×2 (08:49→21:29)
[2019-09-20] MEDS: HEPARIN SODIUM,PORCINE 5,000 UNITS/ML VIAL SQ SCH ×2 (08:49→21:30)
[2019-09-20] MEDS: CHOLECALCIFEROL (VIT D3) 2,000 UNITS TABLET PO SCH (08:50)
[2019-09-20] MEDS: ASPIRIN 81 MG EC TABLET PO SCH (08:50)
[2019-09-20] MEDS: LORATADINE 10 MG TABLET PO SCH (08:50)
[2019-09-20] MEDS: ALLOPURINOL 300 MG TABLET PO SCH (08:50)
[2019-09-20] MEDS: SENNA 187 MG TABLET PO SCH (08:50)
[2019-09-20] MEDS: PANTOPRAZOLE SODIUM 40 MG DR TABLET PO SCH (08:50)
[2019-09-20] MEDS: COLCHICINE 0.6 MG TABLET PO SCH (08:51)
[2019-09-20] MEDS: PRASUGREL HCL 10 MG TABLET PO SCH (08:51)
[2019-09-20 09:27] LABS: BASOPHILS % (AUTO) 1.1 % (0.0-2.0); EOSINOPHILS % (AUTO) 3.9 % (1.0-6.0); HEMATOCRIT 29.6 % (36-46); HEMOGLOBIN 9.9 g/dL (12.0-16.0); LYMPHOCYTES % (AUTO) 19.8 % (22.0-44.0); MEAN CORPUSCULAR HEMOGLOBIN 32.7 pg (26.0-34.0); MEAN CORPUSCULAR HGB CONC 33.4 G/dL (31.0-37.0); MEAN CORPUSCULAR VOLUME 98 fL (80-100); MONOCYTES # (AUTO) 0.4 K/uL (0.1-1.0); MONOCYTES % (AUTO) 7.7 % (2.0-9.0); NEUTROPHILS # (AUTO) 3.5 K/uL (1.8-7.7); NEUTROPHILS % (AUTO) 67.5 % (40.0-70.0); PLATELET COUNT (AUTO) 156 K/uL (150-450); RED BLOOD CELL COUNT(AUTO) 3.02 MIL/uL (4.00-5.20); RED CELL DISTRIBUTION WIDTH 15.6 % (11.5-14.5)
[2019-09-20 09:36] LABS: CALCIUM, TOTAL 8.6 mg/dL (8.8-10.5); CREATININE 1.23 mg/dL (0.60-1.30); POTASSIUM 4.1 mmol/L (3.5-5.1)
[2019-09-20] MEDS: PRAVASTATIN SODIUM 40 MG TABLET PO SCH (21:29)
[2019-09-20] MEDS: ZOLPIDEM TARTRATE 5 MG TABLET PO PRN (22:07)
[2019-09-20] MEDS: TraZODone HCL 100 MG TABLET PO SCH (23:11)
[2019-09-21 05:03] VITALS: BP 123/51
[2019-09-21] MEDS: LEVOTHYROXINE SODIUM 75 MCG TABLET PO SCH (05:56)
[2019-09-21 06:30] LABS: BASOPHILS % (AUTO) 0.9 % (0.0-2.0); EOSINOPHILS % (AUTO) 5.8 % (1.0-6.0); HEMATOCRIT 27.6 % (36-46); HEMOGLOBIN 9.4 g/dL (12.0-16.0); LYMPHOCYTES % (AUTO) 20.4 % (22.0-44.0); MEAN CORPUSCULAR VOLUME 97 fL (80-100); MONOCYTES # (AUTO) 0.5 K/uL (0.1-1.0); MONOCYTES % (AUTO) 9.6 % (2.0-9.0); NEUTROPHILS % (AUTO) 63.3 % (40.0-70.0); PLATELET COUNT (AUTO) 149 K/uL (150-450); RED BLOOD CELL COUNT(AUTO) 2.84 MIL/uL (4.00-5.20); RED CELL DISTRIBUTION WIDTH 15.5 % (11.5-14.5)
[2019-09-21 06:56] LABS: ALBUMIN 2.8 g/dL (3.4-5.0); BILIRUBIN,TOTAL 0.3 mg/dL (0.1-1.0); CALCIUM, TOTAL 8.6 mg/dL (8.8-10.5); CREATININE 1.07 mg/dL (0.60-1.30); POTASSIUM 4.5 mmol/L (3.5-5.1); TOTAL PROTEIN, SERUM 5.3 g/dL (6.4-8.2)
[2019-09-21 07:15] VITALS: BP 133/49
[2019-09-21] MEDS: ALLOPURINOL 300 MG TABLET PO SCH (08:11)
[2019-09-21] MEDS: SENNA 187 MG TABLET PO SCH (08:11)
[2019-09-21] MEDS: ISOSORB DINIT/HYDRALAZINE HCL 20-37.5 MG TABLET PO SCH ×2 (08:11→20:17)
[2019-09-21] MEDS: COLCHICINE 0.6 MG TABLET PO SCH (08:11)
[2019-09-21] MEDS: PRASUGREL HCL 10 MG TABLET PO SCH (08:12)
[2019-09-21] MEDS: PANTOPRAZOLE SODIUM 40 MG DR TABLET PO SCH (08:12)
[2019-09-21] MEDS: ASPIRIN 81 MG EC TABLET PO SCH (08:12)
[2019-09-21] MEDS: LORATADINE 10 MG TABLET PO SCH (08:12)
[2019-09-21] MEDS: HEPARIN SODIUM,PORCINE 5,000 UNITS/ML VIAL SQ SCH ×2 (08:12→20:18)
[2019-09-21] MEDS: CHOLECALCIFEROL (VIT D3) 2,000 UNITS TABLET PO SCH (08:12)
[2019-09-21 11:34] VITALS: BP 122/52
[2019-09-21] MEDS: HYDROCODONE/ACETAMINOPHEN 10-325 MG TABLET PO PRN ×2 (12:01→22:07)
[2019-09-21 15:22] VITALS: BP 117/42
[2019-09-21 19:40] VITALS: BP 134/51
[2019-09-21] MEDS: TraZODone HCL 100 MG TABLET PO SCH (20:17)
[2019-09-21] MEDS: PRAVASTATIN SODIUM 40 MG TABLET PO SCH (20:18)
[2019-09-21] MEDS: ZOLPIDEM TARTRATE 5 MG TABLET PO PRN (22:07)
[2019-09-22 04:10] VITALS: BP 122/58
[2019-09-22] MEDS: LEVOTHYROXINE SODIUM 75 MCG TABLET PO SCH (05:30)
[2019-09-22 06:00] LABS: BASOPHILS % (AUTO) 0.6 % (0.0-2.0); EOSINOPHILS % (AUTO) 7.5 % (1.0-6.0); HEMATOCRIT 27.3 % (36-46); HEMOGLOBIN 9.4 g/dL (12.0-16.0); LYMPHOCYTES % (AUTO) 21.9 % (22.0-44.0); MEAN CORPUSCULAR HEMOGLOBIN 33.4 pg (26.0-34.0); MEAN CORPUSCULAR HGB CONC 34.6 G/dL (31.0-37.0); MEAN CORPUSCULAR VOLUME 97 fL (80-100); MONOCYTES # (AUTO) 0.5 K/uL (0.1-1.0); NEUTROPHILS # (AUTO) 2.7 K/uL (1.8-7.7); PLATELET COUNT (AUTO) 146 K/uL (150-450); RED BLOOD CELL COUNT(AUTO) 2.82 MIL/uL (4.00-5.20); RED CELL DISTRIBUTION WIDTH 15.6 % (11.5-14.5)
[2019-09-22 06:10] LABS: ANION GAP 5 mmol/L (8-16); CALCIUM, TOTAL 8.5 mg/dL (8.8-10.5); CARBON DIOXIDE 26 mmol/L (22-29); CHLORIDE 109 mmol/L (98-107); CREATININE 1.03 mg/dL (0.60-1.30); GLUCOSE,RANDOM 79 mg/dL (70-110); POTASSIUM 4.4 mmol/L (3.5-5.1); SODIUM SERUM 140 mmol/L (136-145); UREA NITROGEN, BLOOD 15 mg/dL (7-18)
[2019-09-22 06:18] LABS: GLOMERULAR FILTR. RATE CALC > 60 mL/min (>60)
[2019-09-22 07:53] VITALS: BP 137/55
[2019-09-22] MEDS: ISOSORB DINIT/HYDRALAZINE HCL 20-37.5 MG TABLET PO SCH ×2 (08:29→20:08)
[2019-09-22] MEDS: PRASUGREL HCL 10 MG TABLET PO SCH (08:29)
[2019-09-22] MEDS: CHOLECALCIFEROL (VIT D3) 2,000 UNITS TABLET PO SCH (08:30)
[2019-09-22] MEDS: ALLOPURINOL 300 MG TABLET PO SCH (08:30)
[2019-09-22] MEDS: LORATADINE 10 MG TABLET PO SCH (08:30)
[2019-09-22] MEDS: PANTOPRAZOLE SODIUM 40 MG DR TABLET PO SCH (08:30)
[2019-09-22] MEDS: ASPIRIN 81 MG EC TABLET PO SCH (08:30)
[2019-09-22] MEDS: HEPARIN SODIUM,PORCINE 5,000 UNITS/ML VIAL SQ SCH ×2 (08:31→20:09)
[2019-09-22] MEDS: COLCHICINE 0.6 MG TABLET PO SCH (08:31)
[2019-09-22] MEDS: SENNA 187 MG TABLET PO SCH (08:31)
[2019-09-22] MEDS: HYDROCODONE/ACETAMINOPHEN 10-325 MG TABLET PO PRN ×2 (11:17→22:14)
[2019-09-22] MEDS: FLUTICASONE PROPIONATE 50 MCG/SPRAY 16 GM NASAL SPRAY NASAL SCH ×2 (11:18→20:08)
[2019-09-22 11:20] VITALS: BP 121/48
[2019-09-22 17:14] VITALS: BP 147/55
[2019-09-22 19:41] VITALS: BP 144/49
[2019-09-22] MEDS: TraZODone HCL 100 MG TABLET PO SCH (20:08)
[2019-09-22] MEDS: PRAVASTATIN SODIUM 40 MG TABLET PO SCH (20:09)
[2019-09-22] MEDS: ZOLPIDEM TARTRATE 5 MG TABLET PO PRN (22:14)
[2019-09-23 00:51] VITALS: BP 145/52
[2019-09-23 05:50] VITALS: BP 128/52
[2019-09-23] MEDS: LEVOTHYROXINE SODIUM 75 MCG TABLET PO SCH (06:05)
[2019-09-23 07:30] VITALS: BP 139/57
[2019-09-23] MEDS: ASPIRIN 81 MG EC TABLET PO SCH (08:29)
[2019-09-23] MEDS: PRASUGREL HCL 10 MG TABLET PO SCH (08:29)
[2019-09-23] MEDS: LORATADINE 10 MG TABLET PO SCH (08:29)
[2019-09-23] MEDS: COLCHICINE 0.6 MG TABLET PO SCH (08:29)
[2019-09-23] MEDS: ISOSORB DINIT/HYDRALAZINE HCL 20-37.5 MG TABLET PO SCH (08:29)
[2019-09-23] MEDS: ALLOPURINOL 300 MG TABLET PO SCH (08:29)
[2019-09-23] MEDS: CHOLECALCIFEROL (VIT D3) 2,000 UNITS TABLET PO SCH (08:30)
[2019-09-23] MEDS: PANTOPRAZOLE SODIUM 40 MG DR TABLET PO SCH (08:30)
[2019-09-23] MEDS: SENNA 187 MG TABLET PO SCH (08:30)
[2019-09-23] MEDS: FLUTICASONE PROPIONATE 50 MCG/SPRAY 16 GM NASAL SPRAY NASAL SCH (08:30)
[2019-09-23] MEDS: HEPARIN SODIUM,PORCINE 5,000 UNITS/ML VIAL SQ SCH (08:30)
[2019-09-23 10:45] VITALS: BP 126/48
[2019-09-23] MEDS ORDERED: FLUT16H NASAL ×2 (11:35)
== END 2019-09-23 13:05 | disposition home or self-care (01) | DRG 286 ==
LOC: EMS 10:52 → 5N 15:08
PROVIDERS: ADMIT Internal Medicine Geriatric Medicine; ATTEND Internal Medicine Geriatric Medicine
PROC: 4A023N7 Measurement of Cardiac Sampling and Pressure, Left Heart, Percutaneous Approach (ICD-10-PCS; principal; 2019-09-19)
PROC: B3101ZZ Fluoroscopy of Thoracic Aorta using Low Osmolar Contrast (ICD-10-PCS; 2019-09-19)
PROC: B2111ZZ Fluoroscopy of Multiple Coronary Arteries using Low Osmolar Contrast (ICD-10-PCS; 2019-09-19)
DX: I20.8 Other forms of angina pectoris (principal); I50.33 Acute on chronic diastolic (congestive) heart failure; I13.0 Hypertensive heart and chronic kidney disease with heart failure and stage 1 through stage 4 chronic kidney disease, or unspecified chronic kidney disease; F11.20 Opioid dependence, uncomplicated; M94.0 Chondrocostal junction syndrome [Tietze]; N18.9 Chronic kidney disease, unspecified; E78.5 Hyperlipidemia, unspecified; M10.9 Gout, unspecified; E03.9 Hypothyroidism, unspecified; I35.0 Nonrheumatic aortic (valve) stenosis; J45.909 Unspecified asthma, uncomplicated; E78.00 Pure hypercholesterolemia, unspecified; J44.9 Chronic obstructive pulmonary disease, unspecified; E83.51 Hypocalcemia; G89.29 Other chronic pain; M54.9 Dorsalgia, unspecified; E11.22 Type 2 diabetes mellitus with diabetic chronic kidney disease; Z88.0 Allergy status to penicillin; I25.2 Old myocardial infarction; Z79.82 Long term (current) use of aspirin; Z87.891 Personal history of nicotine dependence; Z95.2 Presence of prosthetic heart valve; Z95.5 Presence of coronary angioplasty implant and graft
CPT/HCPCS: 83036; 83735; 84439; 84443; 93005; 93306; 97162; 97165; 97530; 97535; J1644; J3490; Q9967

== ENCOUNTER → 2019-10-23 | Outpatient (CLI) | payer MEDICARE, MEDICAID ==
[~2019-10-23] MED LIST changes: +ALBU8HFA IH; +ASPI-1111 PO; -ASPI-1182 PO; +CHOL200016 PO; -CHOL200059 PO; -EPOE10003 SQ; +FLUT16H NASAL; +LEVO75 PO; +RANO500T3 PO; +SENN-176 PO; -TRAZ-220 PO; +TRAZ-257 PO
[2019-10-23 11:16] VITALS: BP 167/48
== END | disposition home or self-care (01) ==
LOC: SRCNTR 11:11
PROVIDERS: ATTEND Internal Medicine Critical Care Medicine
DX: J44.1 Chronic obstructive pulmonary disease with (acute) exacerbation (principal); I35.0 Nonrheumatic aortic (valve) stenosis; I25.10 Atherosclerotic heart disease of native coronary artery without angina pectoris; E03.9 Hypothyroidism, unspecified; K21.9 Gastro-esophageal reflux disease without esophagitis; I10 Essential (primary) hypertension; E11.9 Type 2 diabetes mellitus without complications; Z79.82 Long term (current) use of aspirin; Z79.899 Other long term (current) drug therapy; Z88.0 Allergy status to penicillin; Z85.89 Personal history of malignant neoplasm of other organs and systems; Z98.890 Other specified postprocedural states
CPT/HCPCS: G0463

== ENCOUNTER 2019-12-12 12:49 | Inpatient (IN) | payer MEDICARE, MEDICAID ==
[~2019-12-12] VITALS: Ht 170.2 cm; Wt 73.3 kg
[~2019-12-12 12:49] MED LIST changes: -ALBU8HFA IH; -LEVO75 PO; -RANO500T3 PO; -SENN-176 PO
[2019-12-12 14:03] LABS: BASOPHILS % (AUTO) 2.3 % (0.0-2.0); EOSINOPHILS % (AUTO) 3.5 % (1.0-6.0); HEMATOCRIT 36.7 % (36-46); HEMOGLOBIN 12.1 g/dL (12.0-16.0); LYMPHOCYTES # (AUTO) 1.4 K/uL (1.0-4.8); LYMPHOCYTES % (AUTO) 24.5 % (22.0-44.0); MEAN CORPUSCULAR HEMOGLOBIN 31.8 pg (26.0-34.0); MEAN CORPUSCULAR HGB CONC 32.9 G/dL (31.0-37.0); MEAN CORPUSCULAR VOLUME 97 fL (80-100); MONOCYTES # (AUTO) 0.5 K/uL (0.1-1.0); MONOCYTES % (AUTO) 7.6 % (2.0-9.0); NEUTROPHILS # (AUTO) 3.7 K/uL (1.8-7.7); NEUTROPHILS % (AUTO) 62.1 % (40.0-70.0); PLATELET COUNT (AUTO) 165 K/uL (150-450); RED CELL DISTRIBUTION WIDTH 14.8 % (11.5-14.5)
[2019-12-12 14:18] LABS: PROTHROMBIN TIME 10.5 SEC (9.4-11.6)
[2019-12-12 14:31] LABS: ALBUMIN 4.3 g/dL (3.4-5.0); BILIRUBIN,TOTAL 0.6 mg/dL (0.1-1.0); CREATININE 1.35 mg/dL (0.60-1.30); POTASSIUM 3.7 mmol/L (3.5-5.1); TOTAL PROTEIN, SERUM 7.5 g/dL (6.4-8.2)
[2019-12-12 14:46] LABS: CALCIUM, TOTAL 9.8 mg/dL (8.8-10.5)
[2019-12-12 15:00] LABS: APPEARANCE,URINE CLEAR (CLEAR); BILIRUBIN,URINE NEGATIVE (NEGATIVE); GLUCOSE, URINE (UA) NEGATIVE (NEGATIVE); KETONES,URINE NEGATIVE (NEGATIVE); LEUKOCYTE ESTERASE ,URINE NEGATIVE (NEGATIVE); NITRATE,URINE NEGATIVE (NEGATIVE); OCCULT BLOOD,URINE NEGATIVE (NEGATIVE); PROTEIN,URINE SEE CONFIRM (NEGATIVE); UROBILINOGEN,URINE 0.2 mg/dL (<=1.0)
[2019-12-12] MEDS ORDERED: NITROGLYCERIN 0.4 MG SUBLINGUAL TABLET #25 SL ONE (15:00)
[2019-12-12] MEDS ORDERED: ASPIRIN 325 MG TABLET PO ONE (15:00)
[2019-12-12] MEDS ORDERED: LEVO75 PO (15:05)
[2019-12-12] MEDS ORDERED: ALBU8HFA IH (15:05)
[2019-12-12] MEDS ORDERED: SENN-176 PO (15:05)
[2019-12-12] MEDS ORDERED: CHOL200016 PO (15:05)
[2019-12-12 15:16] LABS: D-DIMER 4.33 mg/L FEU (0.00-0.50)
[2019-12-12 15:18] LABS: SULFOSALICYLIC ACID,URINE 2+ (Negative)
[2019-12-12 15:20] LABS: BACTERIA,URINE Rare /HPF (None Seen); RBC,URINE None Seen /HPF (0-2); SQUAMOUS EPITHELIAL CELL,UR Rare /LPF (None Seen); WBC,URINE 0-2 /HPF (0-5)
[2019-12-12] MEDS ORDERED: FLUTICASONE PROPIONATE 50 MCG/SPRAY 16 GM NASAL SPRAY NASAL PRN (16:30)
[2019-12-12] MEDS ORDERED: BISACODYL 10 MG RECTAL RECTAL SUPPOSITORY PR PRN (16:30)
[2019-12-12] MEDS ORDERED: MAGNESIUM HYDROXIDE SUSPENSION 30 ML UDCUP PO PRN (16:30)
[2019-12-12] MEDS ORDERED: ACETAMINOPHEN 325 MG TABLET PO PRN ×2 (16:30→16:45)
[2019-12-12] MEDS ORDERED: ONDANSETRON HCL 4 MG/2 ML VIAL IVP PRN ×2 (16:30→16:45)
[2019-12-12] MEDS ORDERED: IOVERSOL 320 MG/ML 100 ML VIAL ONE (16:45)
[2019-12-12] MEDS ORDERED: 0.9% SODIUM CHLORIDE 10 ML SYRINGE IVP PRN (16:45)
[2019-12-12] MEDS ORDERED: SODIUM CHLORIDE 0.9% 100 ML ONE (16:45)
[2019-12-12] MEDS ORDERED: LORazepam 2 MG/ML VIAL IVP PRN (17:00)
[2019-12-12 18:31] VITALS: BP 163/66
[2019-12-12] MEDS: IPRATROPIUM BROMIDE 0.5 MG/2.5 ML NEB SOLUTION NEB SCH (20:00)
[2019-12-12] MEDS: ALBUTEROL SULFATE 2.5 MG/0.5 ML NEB SOLUTION NEB SCH (20:00)
[2019-12-12 20:04] VITALS: BP 166/53
[2019-12-12] MEDS: BUMETANIDE 1 MG TABLET PO SCH (21:21)
[2019-12-12] MEDS: ISOSORB DINIT/HYDRALAZINE HCL 20-37.5 MG TABLET PO SCH (21:21)
[2019-12-12] MEDS: TraZODone HCL 100 MG TABLET PO SCH (21:22)
[2019-12-12] MEDS: HEPARIN SODIUM,PORCINE 5,000 UNITS/ML VIAL SQ SCH (21:22)
[2019-12-12] MEDS: PREGABALIN 75 MG CAPSULE PO SCH (21:22)
[2019-12-12] MEDS: ZOLPIDEM TARTRATE 5 MG TABLET PO PRN (21:30)
[2019-12-13 00:15] VITALS: BP 116/53
[2019-12-13] MEDS: ALBUTEROL SULFATE 2.5 MG/0.5 ML NEB SOLUTION NEB SCH ×4 (02:00→20:00)
[2019-12-13] MEDS: IPRATROPIUM BROMIDE 0.5 MG/2.5 ML NEB SOLUTION NEB SCH ×4 (02:00→20:00)
[2019-12-13] MEDS: MORPHINE SULFATE 2 MG/ML SYRINGE IVP PRN ×3 (05:16→20:33)
[2019-12-13 05:28] VITALS: BP 144/52
[2019-12-13] MEDS: LEVOTHYROXINE SODIUM 75 MCG TABLET PO SCH (06:07)
[2019-12-13 07:08] LABS: BASOPHILS % (AUTO) 1.2 % (0.0-2.0); EOSINOPHILS % (AUTO) 6.2 % (1.0-6.0); HEMATOCRIT 33.6 % (36-46); HEMOGLOBIN 11.2 g/dL (12.0-16.0); LYMPHOCYTES # (AUTO) 1.4 K/uL (1.0-4.8); LYMPHOCYTES % (AUTO) 26.2 % (22.0-44.0); MEAN CORPUSCULAR HEMOGLOBIN 31.9 pg (26.0-34.0); MEAN CORPUSCULAR HGB CONC 33.2 G/dL (31.0-37.0); MEAN CORPUSCULAR VOLUME 96 fL (80-100); MONOCYTES # (AUTO) 0.5 K/uL (0.1-1.0); NEUTROPHILS % (AUTO) 57.4 % (40.0-70.0); PLATELET COUNT (AUTO) 170 K/uL (150-450); RED CELL DISTRIBUTION WIDTH 14.8 % (11.5-14.5)
[2019-12-13 07:27] LABS: HEMOGLOBIN A1C 5.4 % (3.8-5.6)
[2019-12-13 08:00] VITALS: BP 131/43
[2019-12-13 08:14] LABS: ALBUMIN 3.7 g/dL (3.4-5.0); BILIRUBIN,TOTAL 0.4 mg/dL (0.1-1.0); CALCIUM, TOTAL 9.9 mg/dL (8.8-10.5); CHOL/HDL RATIO 1.8 (3.9-5.7); CREATININE 1.33 mg/dL (0.60-1.30); MAGNESIUM 2.3 mg/dL (1.80-2.40); POTASSIUM 3.6 mmol/L (3.5-5.1); THYROID STIMULATING HORMONE 1.78 uIU/mL (0.36-3.74); TOTAL PROTEIN, SERUM 6.7 g/dL (6.4-8.2)
[2019-12-13] MEDS: PRASUGREL HCL 10 MG TABLET PO SCH (08:14)
[2019-12-13] MEDS: ISOSORB DINIT/HYDRALAZINE HCL 20-37.5 MG TABLET PO SCH ×2 (08:14→20:32)
[2019-12-13] MEDS: PANTOPRAZOLE SODIUM 40 MG DR TABLET PO SCH (08:15)
[2019-12-13] MEDS: SENNA 187 MG TABLET PO SCH (08:16)
[2019-12-13] MEDS: BUMETANIDE 1 MG TABLET PO SCH ×2 (08:16→20:33)
[2019-12-13] MEDS: ASPIRIN 81 MG EC TABLET PO SCH (08:17)
[2019-12-13] MEDS: LOSARTAN POTASSIUM 50 MG TABLET PO SCH (08:17)
[2019-12-13] MEDS: CHOLECALCIFEROL (VIT D3) 2,000 UNITS TABLET PO SCH (08:17)
[2019-12-13] MEDS: PREGABALIN 75 MG CAPSULE PO SCH ×2 (08:17→20:33)
[2019-12-13] MEDS: LORATADINE 10 MG TABLET PO SCH (08:17)
[2019-12-13] MEDS: HEPARIN SODIUM,PORCINE 5,000 UNITS/ML VIAL SQ SCH ×2 (08:18→20:30)
[2019-12-13 08:42] LABS: FREE T4 (FREE THYROXINE) 1.17 ng/dL (0.76-1.46)
[2019-12-13] MEDS ORDERED: COLCHICINE 0.6 MG TABLET PO SCH (09:00)
[2019-12-13 11:12] VITALS: BP 105/33
[2019-12-13 15:04] VITALS: BP 122/35
[2019-12-13 19:52] VITALS: BP 140/46
[2019-12-13] MEDS: TraZODone HCL 100 MG TABLET PO SCH (20:30)
[2019-12-13] MEDS: ZOLPIDEM TARTRATE 5 MG TABLET PO PRN (23:01)
[2019-12-14] MEDS: ALBUTEROL SULFATE 2.5 MG/0.5 ML NEB SOLUTION NEB SCH ×5 (02:00→20:13)
[2019-12-14] MEDS: IPRATROPIUM BROMIDE 0.5 MG/2.5 ML NEB SOLUTION NEB SCH ×5 (02:00→20:13)
[2019-12-14 04:28] VITALS: BP 103/30
[2019-12-14] MEDS: LEVOTHYROXINE SODIUM 75 MCG TABLET PO SCH (05:38)
[2019-12-14 07:44] VITALS: BP 129/47
[2019-12-14 08:13] LABS: BASOPHILS % (AUTO) 1.1 % (0.0-2.0); EOSINOPHILS % (AUTO) 6.8 % (1.0-6.0); HEMATOCRIT 35.4 % (36-46); HEMOGLOBIN 11.7 g/dL (12.0-16.0); LYMPHOCYTES # (AUTO) 1.9 K/uL (1.0-4.8); LYMPHOCYTES % (AUTO) 29.7 % (22.0-44.0); MEAN CORPUSCULAR HGB CONC 33.2 G/dL (31.0-37.0); MEAN CORPUSCULAR VOLUME 97 fL (80-100); MONOCYTES # (AUTO) 0.6 K/uL (0.1-1.0); MONOCYTES % (AUTO) 9.6 % (2.0-9.0); NEUTROPHILS # (AUTO) 3.3 K/uL (1.8-7.7); NEUTROPHILS % (AUTO) 52.8 % (40.0-70.0); PLATELET COUNT (AUTO) 169 K/uL (150-450); RED BLOOD CELL COUNT(AUTO) 3.67 MIL/uL (4.00-5.20); RED CELL DISTRIBUTION WIDTH 14.6 % (11.5-14.5)
[2019-12-14 08:21] LABS: CALCIUM, TOTAL 9.2 mg/dL (8.8-10.5); CREATININE 1.51 mg/dL (0.60-1.30); POTASSIUM 4.5 mmol/L (3.5-5.1)
[2019-12-14] MEDS: ISOSORB DINIT/HYDRALAZINE HCL 20-37.5 MG TABLET PO SCH ×2 (09:47→21:00)
[2019-12-14] MEDS: HEPARIN SODIUM,PORCINE 5,000 UNITS/ML VIAL SQ SCH ×2 (09:48→21:04)
[2019-12-14] MEDS: PRASUGREL HCL 10 MG TABLET PO SCH (09:48)
[2019-12-14] MEDS: BUMETANIDE 1 MG TABLET PO SCH ×2 (09:49→21:05)
[2019-12-14] MEDS: ASPIRIN 81 MG EC TABLET PO SCH (09:49)
[2019-12-14] MEDS: PREGABALIN 75 MG CAPSULE PO SCH ×2 (09:49→21:05)
[2019-12-14] MEDS: LORATADINE 10 MG TABLET PO SCH (09:50)
[2019-12-14] MEDS: CHOLECALCIFEROL (VIT D3) 2,000 UNITS TABLET PO SCH (09:50)
[2019-12-14] MEDS: LOSARTAN POTASSIUM 50 MG TABLET PO SCH (09:50)
[2019-12-14] MEDS: SENNA 187 MG TABLET PO SCH (09:50)
[2019-12-14] MEDS: PANTOPRAZOLE SODIUM 40 MG DR TABLET PO SCH (09:56)
[2019-12-14 11:52] VITALS: BP 111/39
[2019-12-14] MEDS: MORPHINE SULFATE 2 MG/ML SYRINGE IVP PRN (12:48)
[2019-12-14 16:14] VITALS: BP 125/56
[2019-12-14 20:44] VITALS: BP 111/36
[2019-12-14] MEDS: TraZODone HCL 100 MG TABLET PO SCH (21:04)
[2019-12-14] MEDS: ZOLPIDEM TARTRATE 5 MG TABLET PO PRN (22:21)
[2019-12-15 01:13] VITALS: BP 130/41
[2019-12-15] MEDS: ALBUTEROL SULFATE 2.5 MG/0.5 ML NEB SOLUTION NEB SCH ×3 (02:00→13:56)
[2019-12-15] MEDS: IPRATROPIUM BROMIDE 0.5 MG/2.5 ML NEB SOLUTION NEB SCH ×3 (02:00→13:56)
[2019-12-15] MEDS: MORPHINE SULFATE 2 MG/ML SYRINGE IVP PRN ×2 (04:56→10:51)
[2019-12-15 05:24] VITALS: BP 142/70
[2019-12-15] MEDS: LEVOTHYROXINE SODIUM 75 MCG TABLET PO SCH (06:11)
[2019-12-15 07:20] LABS: BASOPHILS % (AUTO) 0.5 % (0.0-2.0); EOSINOPHILS % (AUTO) 9.9 % (1.0-6.0); HEMATOCRIT 32.7 % (36-46); HEMOGLOBIN 10.9 g/dL (12.0-16.0); LYMPHOCYTES # (AUTO) 1.1 K/uL (1.0-4.8); LYMPHOCYTES % (AUTO) 24.5 % (22.0-44.0); MEAN CORPUSCULAR HGB CONC 33.2 G/dL (31.0-37.0); MEAN CORPUSCULAR VOLUME 96 fL (80-100); MONOCYTES # (AUTO) 0.6 K/uL (0.1-1.0); MONOCYTES % (AUTO) 12.9 % (2.0-9.0); NEUTROPHILS # (AUTO) 2.4 K/uL (1.8-7.7); NEUTROPHILS % (AUTO) 52.2 % (40.0-70.0); PLATELET COUNT (AUTO) 161 K/uL (150-450); RED CELL DISTRIBUTION WIDTH 14.9 % (11.5-14.5)
[2019-12-15 07:21] VITALS: BP 137/48
[2019-12-15 07:27] LABS: CALCIUM, TOTAL 9.2 mg/dL (8.8-10.5); CREATININE 1.58 mg/dL (0.60-1.30)
[2019-12-15] MEDS: SENNA 187 MG TABLET PO SCH (08:59)
[2019-12-15] MEDS: PREGABALIN 75 MG CAPSULE PO SCH (08:59)
[2019-12-15] MEDS: ISOSORB DINIT/HYDRALAZINE HCL 20-37.5 MG TABLET PO SCH (08:59)
[2019-12-15] MEDS: PRASUGREL HCL 10 MG TABLET PO SCH (09:00)
[2019-12-15] MEDS: LORATADINE 10 MG TABLET PO SCH (09:00)
[2019-12-15] MEDS: ASPIRIN 81 MG EC TABLET PO SCH (09:00)
[2019-12-15] MEDS: HEPARIN SODIUM,PORCINE 5,000 UNITS/ML VIAL SQ SCH (09:00)
[2019-12-15] MEDS: PANTOPRAZOLE SODIUM 40 MG DR TABLET PO SCH (09:00)
[2019-12-15] MEDS: BUMETANIDE 1 MG TABLET PO SCH (09:00)
[2019-12-15] MEDS: LOSARTAN POTASSIUM 50 MG TABLET PO SCH (09:00)
[2019-12-15] MEDS: CHOLECALCIFEROL (VIT D3) 2,000 UNITS TABLET PO SCH (09:01)
[2019-12-15] MEDS: NITROGLYCERIN 0.4 MG SUBLINGUAL TABLET #25 SL PRN ×3 (10:22→10:35)
[2019-12-15 11:40] VITALS: BP 110/48
[2019-12-15] MEDS ORDERED: TraMADol HCL 50 MG TABLET PO PRN (13:00)
[2019-12-15] MEDS ORDERED: RANO500T3 PO (15:01)
[2019-12-15 15:44] VITALS: BP 129/51
[2019-12-15] MEDS ORDERED: RANOLAZINE 500 MG ER TABLET PO ONE (16:00)
[2019-12-15] MEDS ORDERED: RANOLAZINE 500 MG ER TABLET PO SCH (21:00)
== END 2019-12-15 18:10 | disposition home or self-care (01) | DRG 302 ==
LOC: EMS 12:52 → 5N 17:05
PROVIDERS: ADMIT Internal Medicine Geriatric Medicine; ATTEND Internal Medicine Geriatric Medicine
DX: I25.119 Atherosclerotic heart disease of native coronary artery with unspecified angina pectoris (principal); I50.33 Acute on chronic diastolic (congestive) heart failure; I13.0 Hypertensive heart and chronic kidney disease with heart failure and stage 1 through stage 4 chronic kidney disease, or unspecified chronic kidney disease; N17.9 Acute kidney failure, unspecified; I42.9 Cardiomyopathy, unspecified; N18.3 Chronic kidney disease, stage 3 (moderate); D64.9 Anemia, unspecified; E11.22 Type 2 diabetes mellitus with diabetic chronic kidney disease; E03.9 Hypothyroidism, unspecified; J44.9 Chronic obstructive pulmonary disease, unspecified; M10.9 Gout, unspecified; I35.0 Nonrheumatic aortic (valve) stenosis; F41.9 Anxiety disorder, unspecified; I95.9 Hypotension, unspecified; E78.00 Pure hypercholesterolemia, unspecified; D50.9 Iron deficiency anemia, unspecified; E78.5 Hyperlipidemia, unspecified; R80.9 Proteinuria, unspecified; Z95.5 Presence of coronary angioplasty implant and graft; Z95.2 Presence of prosthetic heart valve; Z88.0 Allergy status to penicillin; I25.2 Old myocardial infarction
CPT/HCPCS: 71275; 83036; 83735; 84439; 84443; 84550; 85379; 93005; 93306; 94640; J1644; J2270; J7050